=== PATIENT | male | born 1950 | race Caucasian/White ===

== ENCOUNTER 2018-07-16 17:06 | Emergency (ER) | payer MEDICARE ==
[2018-07-16] MEDS ORDERED: Mag-Al 1200 mg/1200 mg/30 ML UDCUP ONE (19:56)
[2018-07-16] MEDS ORDERED: Lidocaine Viscous Sol 2% 15 ml UD Cup ONE (19:56)
== END 2018-07-16 20:15 | disposition home or self-care (01) ==
LOC: ERS 17:06
DX: R07.89 Other chest pain (principal); I48.91 Unspecified atrial fibrillation; E11.9 Type 2 diabetes mellitus without complications; N40.0 Benign prostatic hyperplasia without lower urinary tract symptoms; E78.5 Hyperlipidemia, unspecified; F32.9 Major depressive disorder, single episode, unspecified; Z86.73 Personal history of transient ischemic attack (TIA), and cerebral infarction without residual deficits; Z79.82 Long term (current) use of aspirin; Z79.891 Long term (current) use of opiate analgesic; Z79.84 Long term (current) use of oral hypoglycemic drugs
CPT/HCPCS: 84484

== ENCOUNTER 2018-12-06 23:08 | Emergency (ER) | payer MEDICARE ==
[2018-12-07 00:22] LABS: #Eosinphils 0.2 thou/uL (0.0-0.7); #Lymphocytes 2.6 thou/uL (1.20-3.40); #Monocytes 1.1 thou/uL (0.11-0.59); %Basophils 0.2 % (0.0-1.0); %Eosinophils 3.1 % (0.0-10.0); %Lymphocytes 33.1 % (21.0-51.0); %Monocytes 13.2 % (0.0-10.0); %Neutrophils 50.6 % (42.0-75.0); Hemoglobin 11.1 g/dL (14.0-18.0); Mean Corpuscular HGB CONC 34.6 g/dL (32.0-36.0); Mean Corpuscular Hemoglobin 31.2 pg (27.0-31.0); Mean Corpuscular Volume 90.2 fL (78.0-98.0); Mean Platelet Volume 6.9 fL (7.4-10.4); Platelet Count 205 thou/uL (130-400); RBC Distribution Width 16.1 % (11.5-14.5); Red Blood Cell (RBC) Count 3.56 mill/uL (4.70-6.10)
[2018-12-07 00:46] LABS: ALT (SGPT) 11 U/L (8-55); AST (SGOT) 10 U/L (5-34); Albumin 4.1 g/dL (3.4-4.8); Alkaline Phosphatase 81 U/L (40-150); Anion Gap 14 mmol/L (10-20); BUN (Urea Nitrogen) 20 mg/dL (8.4-25.7); Bilirubin, Total 0.5 mg/dL (0.2-1.2); Calc. Creatinine Clearance 0 mL/min (70-130); Calcium 9.3 mg/dL (7.8-10.44); Carbon Dioxide 26 mmol/L (23-31); Chloride 98 mmol/L (98-107); Estimated GFR-MDRD 30; Globulin 3.3 g/dL (2.4-3.5); Glucose 263 mg/dL (80-115); Lipase 31 U/L (8-78); Protein, Total 7.4 g/dL (5.8-8.1); Sodium 134 mmol/L (136-145)
[2018-12-07 04:51] LABS: Bacteria/HPF None Seen HPF (None Seen); Bilirubin Negative (Negative); Blood, Urine Trace (Negative); Clarity Clear (Clear); Glucose, Urine (Dipstick) Greater than 1000 mg/dL (Negative); Leukocyte Negative Leu/uL (Negative); Nitrite Negative (Negative); Protein, Urine (Dipstick) 10 mg/dL (Neg-Trace); RBC/HPF 0-3 HPF (0-3); Squamous Epithelial 0-3 HPF (0-3); Urobilinogen Normal mg/dL (Less than 2); WBC/HPF 0-3 HPF (0-3)
--- NOTE | 2018-12-07 06:51 | CT ---
CT ABDOMEN AND PELVIS WITHOUT CONTRAST: 12/07/2018 PROVIDED CLINICAL HISTORY: Kidney pain. COMPARISON: None. FINDINGS: The visualized lung bases are free of significant opacity. The solid abdominal organs are suboptimally evaluated in the absence of IV contrast material but demo nstrate an unremarkable unenhanced CT appearance. There is no evidence for urinary tract calculi or hydronephrosis. Vascular calcification is noted, involving the abdominal aorta. There is ectasia of the infrarenal a bdominal aorta, measuring about 2.8 cm. Gallstones are noted with a contracted gallbladder. There is no bowel dilatation, inflammatory fat stranding, free fluid, or free air apparent. There is no evidence for appendicitis. The osseous structures demonstrate no concerning lytic or blastic lesions. IMPRESSION: No evidence for urinary tract calculi or hydronephrosis. POS: CHERYLE
--- NOTE | 2018-12-07 06:52 | ULT ---
ABDOMINAL AORTIC ULTRASOUND: 12/07/2018 PROVIDED CLINICAL HISTORY: Abdominal pain. FINDINGS: The abdominal aorta is nonaneurysmal, measuring about 2.8 cm in maximum transverse dimension. IMPRESSION: No sonographic evidence for abdominal aortic aneurysm. POS: CHERYLE
== END 2018-12-07 05:33 | disposition home or self-care (01) ==
LOC: ERS 23:08
DX: N17.9 Acute kidney failure, unspecified (principal); R33.9 Retention of urine, unspecified; R10.9 Unspecified abdominal pain; I48.91 Unspecified atrial fibrillation; F32.9 Major depressive disorder, single episode, unspecified; E11.9 Type 2 diabetes mellitus without complications; E78.5 Hyperlipidemia, unspecified; I10 Essential (primary) hypertension; Z86.73 Personal history of transient ischemic attack (TIA), and cerebral infarction without residual deficits; Z79.82 Long term (current) use of aspirin; Z79.891 Long term (current) use of opiate analgesic; Z79.899 Other long term (current) drug therapy
CPT/HCPCS: 36415; 51702; 74176; 76775; 80053; 81003; 81015; 83690; 85025; 96360; 96361

== ENCOUNTER 2019-01-14 14:45 | Inpatient (IN) | payer MEDICARE ==
[2019-01-14 15:36] LABS: #Eosinphils 0.1 thou/uL (0.0-0.7); #Lymphocytes 1.8 thou/uL (1.20-3.40); #Monocytes 0.8 thou/uL (0.11-0.59); #Neutrophils 6.6 thou/uL (1.40-6.50); %Basophils 0.2 % (0.0-1.0); %Lymphocytes 19.3 % (21.0-51.0); %Monocytes 8.6 % (0.0-10.0); %Neutrophils 70.8 % (42.0-75.0); Hemoglobin 12.2 g/dL (14.0-18.0); Mean Corpuscular HGB CONC 35.6 g/dL (32.0-36.0); Mean Corpuscular Hemoglobin 32.1 pg (27.0-31.0); Mean Corpuscular Volume 90.2 fL (78.0-98.0); Mean Platelet Volume 8.6 fL (7.4-10.4); Platelet Count 270 thou/uL (130-400); RBC Distribution Width 14.8 % (11.5-14.5); Red Blood Cell (RBC) Count 3.81 mill/uL (4.70-6.10); White Blood Cell (WBC) Count 9.3 thou/uL (4.8-10.8)
[2019-01-14] MEDS ORDERED: Morphine 4 MG/ML VIAL SLOW IVP SCH (15:45)
[2019-01-14] MEDS ORDERED: Ondansetron PF 4 MG/2 ML Vial IVP SCH (15:45)
[2019-01-14] MEDS ORDERED: Sodium Chloride 0.9% 1,000 ML IV SCH ×3 (15:45→20:49)
[2019-01-14 15:56] LABS: ALT (SGPT) 12 U/L (8-55); AST (SGOT) 12 U/L (5-34); Alkaline Phosphatase 103 U/L (40-150); Anion Gap 20 mmol/L (10-20); BUN (Urea Nitrogen) 26 mg/dL (8.4-25.7); Bilirubin, Total 0.9 mg/dL (0.2-1.2); Calc. Creatinine Clearance 0 mL/min (70-130); Calcium 9.3 mg/dL (7.8-10.44); Carbon Dioxide 21 mmol/L (23-31); Chloride 87 mmol/L (98-107); Estimated GFR-MDRD 28; Globulin 3.8 g/dL (2.4-3.5); Potassium 3.8 mmol/L (3.5-5.1); Protein, Total 7.8 g/dL (5.8-8.1); Sodium 124 mmol/L (136-145)
--- NOTE | 2019-01-14 15:56 | RAD ---
Exam: Chest one view HISTORY:Chest pain Comparison: 01/21/2016 FINDINGS: Cardiac silhouette:Cardiomegaly Left-sided transvenous pacemaker with single lead terminating over the right ventricle Aorta: Unremarkable Pulmonary vessels: Normal Costophrenic angles: Clear LUNGS: Inflation. Chronic changes. No masses or consolidation. Pneumothorax: None Osseous abnormalities: None IMPRESSION: No acute cardiopulmonary process.
[2019-01-14 16:04] LABS: Glucose 588 mg/dL (80-115)
[2019-01-14 16:11] LABS: INR-International Normal Ratio 1.1; PTT 28.8 SEC (22.9-36.1); Prothrombin Time 14.5 SEC (12.0-14.7)
--- NOTE | 2019-01-14 16:13 | CT ---
Exam: Head CT without contrast HISTORY: Altered mental status COMPARISON: none FINDINGS: Hemorrhage: No intraparenchymal hemorrhage or extra-axial hematoma. Brain parenchyma: There is malacic and gliotic change involving the left frontal and temporal lobes. There is a curvilinear hyperdensity in the left frontal subcortical white matter (axial image 21) likely representing an area of calcification. There is ex vacuo dilatation of the frontal horn the le ft lateral ventricle.White matter hypodensities due to chronic small vessel ischemic changes are identified. There is a hypodensity in the midline the anthony noted on axial image #8. Findings may be a rtifactual. Ventricular system: Ex vacuo dilatation of the frontal horn of the left lateral ventricle Calvarium: Intact. Sinuses and mastoid air cells: Adequate aeration. IMPRESSION: Hyperdensity in the left cerebrum and hypodensity in the anthony. Both lesions are felt to be due to rem ote insult or possibly artifactual. As a conservative measure, follow-up CT should be performed in 6-12 hours. Results of study discussed with Dr. Welch 01/14/2019 at 5:19 PM Code CR Transcribed Date/Time: 01/14/2019 4:31 PM
[2019-01-14] MEDS ORDERED: Morphine 4 MG/ML VIAL ONE (16:20)
[2019-01-14] MEDS ORDERED: Ondansetron PF 4 MG/2 ML Vial ONE (16:21)
[2019-01-14 16:36] LABS: Base Excess-Venous 1.7 mmol/L (-2.0 to 3.0); Calcium, Ionized 1.13 mmol/L (See Comments:); Chloride 90 mmol/L (98-107); Hemoglobin - Calc 12.2 g/dL (14.0-18.0); Potassium 3.7 mmol/L (3.5-5.1); Sodium 129 mmol/L (138-145); vO2 Saturation-calc 91.3 % (60.0-85.0)
[2019-01-14 16:53] LABS: Bacteria/HPF 4+ HPF (None Seen); Bilirubin Negative (Negative); Blood, Urine Trace (Negative); Clarity Turbid (Clear); Glucose, Urine (Dipstick) Greater than 1000 mg/dL (Negative); Leukocyte 500 Leu/uL (Negative); Nitrite Negative (Negative); Protein, Urine (Dipstick) 20 mg/dL (Neg-Trace); Squamous Epithelial 0-3 HPF (0-3); Urobilinogen Normal mg/dL (Less than 2); WBC/HPF Greater than 50 HPF (0-3)
[2019-01-14] MEDS ORDERED: Insulin Regular 300 UNITS/3 ML VIAL ONE (17:13)
--- NOTE | 2019-01-14 17:13 | CT ---
CT Abdomen Pelvis WO Con 01/14/2019 4:15 PM HISTORY: Right-sided chest and abdominal pain. Urinary frequency. COMPARISON: 12/07/2018. Technique: Multiple contiguous axial CT images are obtained through the abdomen and pelvis without IV contrast. Coronal reformats are provided. FINDINGS: This examination is limited for the evaluation of solid organs and vascular structures due to the lac k of intravenous contrast. Lower Chest: The heart is enlarged. There is partial visualization of a right ventricular AICD lead. There is a small pleural-based nodular density left lung base adjacent to the hemidiaphragm measuring 8 mm. Atelectasis is present at each lung base. Abdomen: Liver: Grossly normal nonenhanced CT appearance. Gallbladder: Evidence of cholelithiasis is again seen. Pancreas: Grossly normal nonenhanced CT appearance. Spleen: Grossly nonenhanced CT appearance. Adrenals: Grossly normal nonenhanced CT appearance. Kidneys: No renal or ureteral calculi are seen bilaterally. There is a stable subcentimeter hyperdens e exophytic lesion posterior aspect midportion left kidney. There is no hydronephrosis. Ureters: No ureteral calculus is seen.. Pelvis: Urinary bladder: within normal limits. Reproductive Organs: No pelvic masses. Lymph Nodes: No enlarged lymph nodes. Bowel: Normal caliber. Appendix: Not visualized, but no secondary signs are seen to suggest appendicitis. Peritoneum: No free fluid, free air, or fluid collection. Retroperitoneum: within normal limits. Vessels: Vascular calcifications are again seen in the abdominal aorta involving the iliac arteries. There is a focal infrarenal abdominal aortic aneurysm measuring 3.2 cm. Common iliac arteries are ectatic bilaterally.. Abdominal Wall: within normal limits. Bones: Multilevel degenerative changes are again seen in the spine. There is a transitional vertebra at the lumbosacral junction. IMPRESSION: 1. Infrarenal abdominal aortic aneurysm measuring 3.2 cm. Prominent vascular calcifications are seen. 2. No renal or ureteral calculi are seen bilaterally. 3. Cholelithiasis. 4. Mild cardiomegaly. 5. Subcentimeter difficult to characterize pleural-based nodular density left lung base. 6. No acute findings are seen on this nonenhanced CT scan exam.
--- NOTE | 2019-01-14 18:03 | PDOC.FM ---
- Objective Result Diagrams: 01/14/19 15:22 01/14/19 15:22
[2019-01-14] MEDS ORDERED: Ondansetron ODT 4 MG TAB SL PRN (18:52)
[2019-01-14] MEDS ORDERED: Acetaminophen 325 MG TAB PO PRN (18:52)
[2019-01-14] MEDS ORDERED: Ondansetron PF 4 MG/2 ML Vial IVP PRN (18:52)
[2019-01-14 21:12] VITALS: BMI 26.2
[2019-01-14] MEDS ORDERED: Dextrose 50% Abboject 50 ML SYRINGE SLOW IVP PRN (21:25)
[2019-01-14] MEDS ORDERED: Dextrose 5% in Water 1,000 ML IV PRN (21:25)
[2019-01-14] MEDS: HumaLOG 300 UNITS/3 ML VIAL SC PRN (21:50)
--- NOTE | 2019-01-14 22:48 | HP ---
PRIMARY CARE PHYSICIAN: [facility]. CODE STATUS: Full code. TIME OF EVALUATION: 8:20 p.m. CHIEF COMPLAINT: Recent falls. 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 Came to the hospital after having recent falls. This is a new problem. It has been going on for the past few days with no clear triggers, no alleviating factors, the patient has been following with Dr. Griselda Soares and she has been monitoring his blood sugars and his diabetic medications adjustments due to changes in kidney function. The patients' symptoms were severe. The patient was unable to function and do his activities of daily living with weakness in bilateral lower extremities. Also had some increase in urinary frequency. He was found to have a positive UA, been admitted for UTI, maybe the reason of the symptoms. We will continue the patient on antibiotics and follow cultures. Adjust treatment. REVIEW OF SYSTEMS: All other systems were reviewed and negative except for the findings mentioned above. As noted, the patient has sequela of stroke with aphasia and right-sided weakness. PAST MEDICAL HISTORY: As mentioned in the HPI. SURGICAL HISTORY: Pacemaker, appendectomy, tonsillectomy. PSYCHIATRIC HISTORY: Includes depression. FAMILY HISTORY: Reviewed and the patient has a family history of hypertension and heart problems. SOCIAL HISTORY: The patient lives alone, cannot take care of himself except for the past week when the symptoms started. KNOWN ALLERGIES: Penicillin. REPORTED MEDICATIONS: Are being verified now. PHYSICAL EXAMINATION: VITAL SIGNS: Heart rate 76, respiratory rate was 15, oxygen saturation was 99% on room air, blood pressure was 111/63. GENERAL: The patient is alert and oriented, not in acute distress. HEENT: Eyes, normal conjunctivae. Moist oral mucosa. Anicteric. No JVD. RESPIRATORY: Bilateral air entry. No rales. No wheezes. Symmetric expansion. CARDIOVASCULAR: Normal rate. Regular rhythm. No murmurs. No gallop. No edema. ABDOMEN: Soft. Normal bowel sounds. MUSCULOSKELETAL: Baseline range of motion and strength. SKIN: Warm and intact. No pallor. No rash. No redness. Capillary refill seems to be intact. NEURO: No evidence of any new focal weakness. The patient does have residual weakness on the right side with apraxia and aphasia. PSYCH: The patient is oriented. Good mood. DIAGNOSTIC DATA: EKG was reviewed. The patient has atrial fibrillation with controlled rate. Some T-wave changes, may be compatible with inferior and anterolateral ischemia. The patient has no chest pain. Radiology; CT abdomen and pelvis with and without contrast was done. The patient has an infrarenal abdominal aortic aneurysm measuring 3.2 cm. Prominent ventricular calcifications. No renal or ureteral calculi that was seen bilaterally. Cholelithiasis, mild cardiomegaly, subcentimeter [id number] pleural-based nodular density of the left lung base. No acute findings are seen on these nonenhanced CT scan exam. LABORATORY DATA: Labs were reviewed. The patient has a white count of 9.3, hemoglobin 12.2, MCV 90.2, platelet count 270. PT 14.5, INR 1.1, PTT 28.8. Blood gas; pH 7.47 that was VBG. Chemistry; sodium 134, potassium 3.8, chloride 87, carbon dioxide 21, anion gap 20, BUN 26, creatinine 2.33. In previous admissions, the creatinine was 2.21, so this is chronic. GFR 28. Glucose 588, calcium 9.3, total bilirubin 0.9, AST 12, ALT 12, alkaline phosphatase 103. Troponin 0.021. Serum total protein 7.8, albumin 4.0, globulin 3.8, albumin to globulin ratio is 1.1, lipase 36. The urine was reviewed. The patient has bacteriuria with white count greater than 50, and some rbc's and urine leukocyte esterase of 500. ASSESSMENT AND PLAN: The patient will be placed in the hospital with following medical problems: 1. Urinary tract infection. The patient has been started on antibiotics. We will continue for now. We will adjust Levaquin as per kidney function. 2. Uncontrolled diabetes. The patient's blood sugar has been initially in the 500s, was corrected to 300. We will place the patient on sliding scale. The patient has not resumed medications for diabetes as there are some changes due to worsening kidney function. The patient might need to go on insulin which will be p.o.'s for discharge and this needs to be followed up with primary care doctor physician for this reason. 3. Chronic kidney disease. The patient has creatinine of 2.33 that is stable from previous admission, the GFR is 28, so this is stage IV. We will monitor kidney function. We will adjust treatment as needed. We will dose home medications and antibiotics based on kidney function. We will continue to monitor, might need Nephrology evaluation if no improvement. 4. Chronic normocytic anemia. This is likely secondary to chronic kidney disease. This is stable. This can be followed as outpatient. Job ID: [id number]
--- NOTE | 2019-01-14 23:22 | CON ---
DATE OF CONSULTATION: HISTORY OF PRESENT ILLNESS: Mr. Andino is a 68-year-old male, who was brought to the emergency department following a fall a couple of days ago, hyperglycemic. The patient's daughter states that the patient can only answer yes or no questions following a stroke in 2012. He is diabetic, but no longer takes insulin. He is on Eliquis; however, he ran out more than a week ago and has not been taking it. The patient's glucose on arrival was 538. Neurosurgery was consulted following CT head that showed a hyperdensity on the left. When I see Mr. Andino, he is resting comfortably in his hospital bed. He does not appear to be in any visible distress. He follows simple commands and answers simple questions. He is oriented to person, and place. He knows that he is in the hospital, but has some confusion about why. He does know that he had a stroke several years back and has some limitations, but he is moving all 4 extremities well. He has good strength bilaterally. Denies any numbness or tingling. Cranial nerves are tested and intact. REVIEW OF SYSTEMS: A 10-point review of systems has been completed and is negative other than stated above in the HPI. PAST MEDICAL HISTORY: Arrhythmia, atrial fibrillation treated with cardioversion, defibrillation, diabetes type 2. Genitourinary, benign prostate hypertrophy, hyperlipidemia, hypertension, cardiovascular, stroke. PAST SURGICAL HISTORY: Pacemaker, appendectomy, tonsillectomy. SOCIAL HISTORY: The patient denies alcohol or drug use. No smoking history. ALLERGIES: PENICILLIN. CURRENT MEDICATIONS: 1. Metformin. 2. Hydralazine. 3. Glipizide. 4. Eliquis. 5. Flomax. 6. Sertraline. 7. Nifedipine. 8. Lisinopril. 9. Furosemide. 10. Carvedilol. 11. Atorvastatin. PHYSICAL EXAMINATION: VITAL SIGNS: Temperature 97.3, heart rate 81, respirations 18, O2 sats 94% on room air, blood pressure 113/71. CONSTITUTIONAL: The patient is alert, oriented to person and place. He is afebrile, normotensive, nontoxic appearing. HEENT. Head is normocephalic and atraumatic. Pupils are equal, round, and reactive to light. Extraocular movements are intact. Hearing is intact. Moist mucous membranes. RESPIRATIONS: Normal work of breathing on room air. Symmetric chest rise. EXTREMITIES: The patient has normal range of motion and strength, 5/5 bilateral strength in deltoids, biceps, triceps, celebrity manager strength, hip flexion, hip extension, dorsiflexion, plantar flexion. Equal sensation and abrasion to right knee and right elbow. NEUROLOGIC: GCS of 15. The patient is awake, alert, oriented x2 to person and place. He is answering simple questions. Speech is spontaneous and fluent. There is some confusion about why he is in the hospital and he follows simple commands, gets confused easily. Cranial nerves 2 through 12 are tested and intact. There are no lateralizing or sensory deficits noted. IMAGING STUDIES: CT head shows hyperdensity in the left cerebrum and hypodensity on the above lesions are felt to be due to remote insult or possibly our effectual conservative measures. We would recommend CT followup in 6 to 12 hours. ASSESSMENT AND PLAN: Mr. Andino is a 68-year-old male with past medical history of stroke, diabetes, blood thinner use. He has had recent falls. He is hyperglycemic and has urinary tract infection. There is hyperdensity noted on CT brain, which recommended followup. Neurosurgery recommends a CT in the morning as well as neuro checks. No blood thinners should be used at this time as well there is verification of imaging on followup. If there are any further questions, please contact Neurosurgery team. Job ID: [id number]
[2019-01-15 05:34] LABS: #Eosinphils 0.3 thou/uL (0.0-0.7); #Monocytes 0.7 thou/uL (0.11-0.59); #Neutrophils 5.9 thou/uL (1.40-6.50); %Basophils 0.3 % (0.0-1.0); %Eosinophils 2.8 % (0.0-10.0); %Monocytes 8.3 % (0.0-10.0); %Neutrophils 66.7 % (42.0-75.0); Hemoglobin 11.5 g/dL (14.0-18.0); Mean Corpuscular HGB CONC 34.8 g/dL (32.0-36.0); Mean Corpuscular Hemoglobin 31.7 pg (27.0-31.0); Mean Corpuscular Volume 91.1 fL (78.0-98.0); Platelet Count 215 thou/uL (130-400); RBC Distribution Width 14.6 % (11.5-14.5); Red Blood Cell (RBC) Count 3.65 mill/uL (4.70-6.10); White Blood Cell (WBC) Count 8.9 thou/uL (4.8-10.8)
[2019-01-15] MEDS: HumaLOG 300 UNITS/3 ML VIAL SC PRN ×3 (05:39→21:09)
[2019-01-15 05:47] LABS: Anion Gap 14 mmol/L (10-20); BUN (Urea Nitrogen) 24 mg/dL (8.4-25.7); Calc. Creatinine Clearance 53 mL/min (70-130); Calcium 8.8 mg/dL (7.8-10.44); Carbon Dioxide 26 mmol/L (23-31); Chloride 94 mmol/L (98-107); Estimated GFR-MDRD 36; Glucose 207 mg/dL (80-115); Potassium 3.6 mmol/L (3.5-5.1); Sodium 130 mmol/L (136-145)
--- NOTE | 2019-01-15 07:42 | CT ---
CT OF HEAD NONCONTRAST: COMPARISON: Previous day. CLINICAL INDICATION: Abnormal CT, followup. FINDINGS: There is stable ex vacuo dilatation of the left frontal horn. There is a moderate encephalomalacia o f the left cerebral hemisphere with associated wallerian degeneration of the left cerebral peduncle, stable. Chronic microvascular ischemic disease in the cerebral white matter is present. There is a stable curvilinear density indicative of dystrophic calcification involving the anterior left centrum semiovale. The exam is otherwise stable. IMPRESSION: 1. Microvascular ischemic disease and moderate region of encephalomalacia of the left cerebral hemis phere, with resultant left side wallerian degeneration. 2. Stable curvilinear hyperdensity of the anterior left centrum semiovale indicative of dystrophic c alcification. POS: REGINE
[2019-01-15] MEDS ORDERED: Prevnar 13-Val Conj/PF 0.5 ML SYRINGE IM ONE (09:00)
[2019-01-15] MEDS ORDERED: Enoxaparin Sodium 40 MG/0.4 ML SYRINGE SC SCH (09:00)
--- NOTE | 2019-01-15 10:12 | PRG ---
DATE OF SERVICE: 01/15/2019 SUBJECTIVE: The patient is seen and examined at the bedside. He is doing quite well. He does not have much complaints to offer except for some chest discomfort on the right upper chest. He denies any dysuria. No fever. No chills. He is waiting for the breakfast to arrive. He is hungry. OBJECTIVE: VITAL SIGNS: Blood pressure is 118/63, pulse is 68, respiratory rate is 18, O2 saturation is 95% on room air, and temperature is 98.5. HEENT: His head is normocephalic. Pupils are responding to light properly. He follows me. Extraocular movements within normal limits. Sclerae are nonicteric. Conjunctivae pinkish. Oral mucosa is moist. NECK: Supple LUNGS: Clear. HEART: S1 and S2 normal. No S3. No S4. ABDOMEN: Soft, nontender, and nondistended. EXTREMITIES: No clubbing, cyanosis, or edema. NEUROLOGIC: His speech is slurred and he has some difficulty of recalling things, but he follows my simple commands. He moves his all 4 extremities. There is no any motor or sensory deficits at the time of my evaluation. LABORATORY DATA: White count of 8.9, hemoglobin 11.5, hematocrit 33.2, platelet count is 215. Sodium of 130, potassium 3.6, chloride 94, BUN of 24, creatinine 1.88. Glycemia is ranging from 192 to 310, and it was greater than 550 at the time of admission. Microbiology none so far. Brain CT; does the second CT done this morning showed, 1. Microvascular ischemic disease and moderate region of encephalomalacia of the left cerebral hemisphere with resultant left-sided Wallerian degeneration. 2. Stable curvilinear hyperdensity of the anterior left centrum semiovale indicative of dystrophic calcification. IMPRESSION: 1. Possible urinary tract infection. The patient is on levofloxacin. He denies any dysuria, fever, or chills. We will continue that antibiotic. 2. Uncontrolled diabetes. This is getting gradually under control. His glycemia is down to 190s this morning. 3. Chronic kidney disease, improved. His creatinine is down to below 2 this morning and that is probably the best for him. 4. Chronic normocytic anemia, most likely secondary to his chronic kidney disease, stable. 5. Previous cerebrovascular accident with some old findings on the CT of the brain. 6. History of atrial fibrillation, which was treated with cardioversion. 7. BPH. 8. Hyperlipidemia. 9. Hypertension. PLAN: We will await Neurosurgical input. The CT scan was just done as a followup on the previous one. We will continue levofloxacin for now and we will try to identify his home medications. His glycemia has significantly improved. He is on sliding scale Humalog. We will continue DVT prophylaxis and we will try to identify his home medications. The patient is not able to tell us exactly what he is taking and the family refers us to his doctor's office, which is closed obviously because today is Wednesday. Job ID: [id number]
[2019-01-15] MEDS ORDERED: Baclofen 10 MG TAB PO PRN (16:11)
[2019-01-15] MEDS: Potassium Chloride 10 MEQ TAB PO SCH (16:49)
[2019-01-15] MEDS: Carvedilol 6.25 MG TAB PO SCH (21:08)
[2019-01-16] MEDS: HumaLOG 300 UNITS/3 ML VIAL SC PRN ×3 (05:36→21:50)
[2019-01-16] MEDS: Atorvastatin Calcium 40 MG TAB PO SCH (08:20)
[2019-01-16] MEDS: Metolazone 5 MG TAB PO SCH (08:21)
[2019-01-16] MEDS: Lisinopril 20 MG TAB PO SCH (08:21)
[2019-01-16] MEDS: Aspirin 81 mg Enteric Coated Tablet PO SCH (08:21)
[2019-01-16] MEDS: Carvedilol 6.25 MG TAB PO SCH ×2 (08:21→20:21)
[2019-01-16] MEDS: NIFEdipine XL 30 MG TAB PO SCH (08:21)
[2019-01-16] MEDS: Apixaban 5 MG TAB PO SCH (08:21)
[2019-01-16] MEDS: Spironolactone 25 MG TAB PO SCH (08:22)
[2019-01-16] MEDS: Potassium Chloride 10 MEQ TAB PO SCH ×2 (08:22→18:14)
[2019-01-16] MEDS: Furosemide 20 MG TAB PO SCH (08:22)
[2019-01-16] MEDS: hydrALAZINE 25 MG TAB PO SCH (08:22)
[2019-01-16] MEDS: Bumetanide 1 MG TAB PO SCH (08:32)
[2019-01-16 10:57] LABS: #Eosinphils 0.2 thou/uL (0.0-0.7); #Lymphocytes 1.6 thou/uL (1.20-3.40); #Monocytes 0.5 thou/uL (0.11-0.59); %Basophils 0.8 % (0.0-1.0); %Eosinophils 3.5 % (0.0-10.0); %Lymphocytes 24.7 % (21.0-51.0); Mean Corpuscular HGB CONC 35.1 g/dL (32.0-36.0); Mean Corpuscular Hemoglobin 32.1 pg (27.0-31.0); Mean Corpuscular Volume 91.4 fL (78.0-98.0); Mean Platelet Volume 8.1 fL (7.4-10.4); Platelet Count 211 thou/uL (130-400); RBC Distribution Width 14.5 % (11.5-14.5); Red Blood Cell (RBC) Count 3.44 mill/uL (4.70-6.10); White Blood Cell (WBC) Count 6.4 thou/uL (4.8-10.8)
[2019-01-16 11:23] LABS: Anion Gap 12 mmol/L (10-20); BUN (Urea Nitrogen) 19 mg/dL (8.4-25.7); Calc. Creatinine Clearance 59 mL/min (70-130); Carbon Dioxide 27 mmol/L (23-31); Chloride 93 mmol/L (98-107); Estimated GFR-MDRD 40; Glucose 332 mg/dL (80-115); Potassium 3.4 mmol/L (3.5-5.1); Sodium 129 mmol/L (136-145)
--- NOTE | 2019-01-16 18:06 | PDOC.HOSPP ---
- Subjective Encounter Date: 01/16/19 Encounter Time: 11:00 Subjective: Pt seen for followup re: UTI. Not ambulating. - Objective Vital Signs & Weight: Vital Signs (12 hours) Temp Pulse Resp BP BP Pulse Ox 01/16/19 08:22 76 01/16/19 08:21 76 118/63 01/16/19 08:00 96 01/16/19 07:47 98.1 F 64 16 122/72 96 Weight Weight 221 lb I&O: 01/15/19 01/16/19 01/17/19 06:59 06:59 06:59 Intake Total 968 1330 480 Output Total 350 350 200 Balance 618 980 280 Result Diagrams: 01/16/19 10:13 01/16/19 10:13 Additional Labs: Accuchecks 01/16/19 01/16/19 01/15/19 11:12 04:24 19:34 POC Glucose 426 H 307 H 317 H Labs and MARs reviewed by me. ROS - Review of Systems Constitutional: reports: weakness Respiratory: denies: cough, shortness of breath, SOB with excertion, pleuritic pain, wheezing, other Cardiovascular: denies: chest pain, palpitations, orthopnea, paroxysmal noc. dyspnea, edema, light headedness - Medication Medications: Active Medications Generic Name Dose Route Start Last Admin Trade Name Freq PRN Reason Stop Dose Admin Apixaban 5 mg 01/16/19 09:00 01/16/19 08:21 Eliquis PO 5 mg DAILY MEGAN Administration Aspirin 81 mg 01/16/19 09:00 01/16/19 08:21 Ecotrin PO 81 mg DAILY MEGAN Administration Atorvastatin Calcium 80 mg 01/16/19 09:00 01/16/19 08:20 Lipitor PO 80 mg DAILY MEGAN Administration Bumetanide 2 mg 01/16/19 09:00 01/16/19 08:32 Bumex PO 2 mg DAILY MEGAN Administration Carvedilol 6.25 mg 01/15/19 21:00 01/16/19 08:21 Coreg PO 6.25 mg BID MEGAN Administration Furosemide 20 mg 01/16/19 09:00 01/16/19 08:22 Lasix PO 20 mg QAM MEGAN Administration Glipizide 10 mg 01/16/19 08:00 01/16/19 08:32 Glucotrol Xl PO 10 mg QAM-WM MEGAN Administration Hydralazine HCl 25 mg 01/16/19 09:00 01/16/19 08:22 Apresoline PO 25 mg DAILY MEGAN Administration Insulin Human Lispro 0 units 01/14/19 21:25 01/15/19 21:09 Humalog SC 4 unit .BEDTIME SLIDING SC PRN Administration Bedtime Correctional Scale Lisinopril 20 mg 01/16/19 09:00 01/16/19 08:21 Zestril PO 20 mg DAILY MEGAN Administration Metolazone 5 mg 01/16/19 09:00 01/16/19 08:21 Zaroxolyn PO 5 mg DAILY MEGAN Administration Nifedipine 30 mg 01/16/19 09:00 01/16/19 08:21 Procardia Xl PO 30 mg DAILY MEGAN Administration Pantoprazole Sodium 40 mg 01/16/19 09:00 01/16/19 08:22 Protonix PO 40 mg DAILY MEGAN Administration Potassium Chloride 10 meq 01/15/19 17:00 01/16/19 08:22 Klor-Con 10 PO 10 meq BID-WM MEGAN Administration Sertraline HCl 100 mg 01/16/19 09:00 01/16/19 08:22 Zoloft PO 100 mg DAILY MEGAN Administration Spironolactone 25 mg 01/16/19 08:00 01/16/19 08:22 Aldactone PO 25 mg QAM-WM MEGAN Administration - Exam NAD Eye: anicteric sclera ENT: moist mucosa Neck: supple Heart: irregular Respiratory: CTAB Gastrointestinal: soft Skin: no rashes Neurological: no weakness Psychiatric: normal affect, normal behavior Hosp A/P (1) UTI (urinary tract infection) Status: Acute (2) DM2 (diabetes mellitus, type 2) Status: Chronic (3) BPH (benign prostatic hyperplasia) Code(s): N40.0 - BENIGN PROSTATIC HYPERPLASIA WITHOUT LOWER URINRY TRACT SYMP Status: Chronic (4) Dyslipidemia Code(s): E78.5 - HYPERLIPIDEMIA, UNSPECIFIED Status: Chronic (5) Acute worsening of stage 3 chronic kidney disease Code(s): N18.3 - CHRONIC KIDNEY DISEASE, STAGE 3 (MODERATE) Status: Resolved - Plan continue antibiotics, out of bed/ambulate Pt says dysuria improved, continue levofloxacin. Urine cultures were not sent. Transfer to telemetry, interrogate AICD. Check orthostatic vitals. Ambulate patient. Blood sugars high, switch to moderate insulin sliding scale. Continue atorvastatin.
[2019-01-17 05:43] LABS: #Basophils 0.1 thou/uL (0.0-0.2); #Eosinphils 0.2 thou/uL (0.0-0.7); #Lymphocytes 1.8 thou/uL (1.20-3.40); #Monocytes 0.6 thou/uL (0.11-0.59); #Neutrophils 4.2 thou/uL (1.40-6.50); %Basophils 0.9 % (0.0-1.0); %Eosinophils 2.3 % (0.0-10.0); %Lymphocytes 26.7 % (21.0-51.0); %Monocytes 8.6 % (0.0-10.0); %Neutrophils 61.6 % (42.0-75.0); Hemoglobin 11.1 g/dL (14.0-18.0); Mean Corpuscular HGB CONC 34.7 g/dL (32.0-36.0); Mean Corpuscular Hemoglobin 31.5 pg (27.0-31.0); Mean Corpuscular Volume 90.7 fL (78.0-98.0); Mean Platelet Volume 7.9 fL (7.4-10.4); Platelet Count 210 thou/uL (130-400); RBC Distribution Width 14.5 % (11.5-14.5); Red Blood Cell (RBC) Count 3.53 mill/uL (4.70-6.10); White Blood Cell (WBC) Count 6.9 thou/uL (4.8-10.8)
[2019-01-17 06:04] LABS: Anion Gap 14 mmol/L (10-20); BUN (Urea Nitrogen) 21 mg/dL (8.4-25.7); Calc. Creatinine Clearance 58 mL/min (70-130); Carbon Dioxide 24 mmol/L (23-31); Chloride 93 mmol/L (98-107); Estimated GFR-MDRD 38; Glucose 285 mg/dL (80-115); Potassium 3.9 mmol/L (3.5-5.1); Sodium 127 mmol/L (136-145)
[2019-01-17] MEDS: HumaLOG 300 UNITS/3 ML VIAL SC PRN ×4 (06:09→21:11)
[2019-01-17] MEDS: Potassium Chloride 10 MEQ TAB PO SCH ×2 (08:08→17:24)
[2019-01-17] MEDS: Metolazone 5 MG TAB PO SCH (08:08)
[2019-01-17] MEDS: Lisinopril 20 MG TAB PO SCH (09:11)
[2019-01-17] MEDS: Furosemide 20 MG TAB PO SCH (09:12)
[2019-01-17] MEDS: Aspirin 81 mg Enteric Coated Tablet PO SCH (09:12)
[2019-01-17] MEDS: Carvedilol 6.25 MG TAB PO SCH ×2 (09:12→21:12)
[2019-01-17] MEDS: NIFEdipine XL 30 MG TAB PO SCH (09:13)
[2019-01-17] MEDS: Bumetanide 1 MG TAB PO SCH (09:13)
[2019-01-17] MEDS: Apixaban 5 MG TAB PO SCH (09:13)
[2019-01-17] MEDS: hydrALAZINE 25 MG TAB PO SCH (09:13)
[2019-01-17] MEDS: Spironolactone 25 MG TAB PO SCH (09:13)
[2019-01-17] MEDS: Atorvastatin Calcium 40 MG TAB PO SCH (09:13)
--- NOTE | 2019-01-17 14:59 | PDOC.HOSPP ---
- Subjective Encounter Date: 01/17/19 Encounter Time: 07:20 Subjective: Pt seen for followup re: NSVT. Feels weak. Ambulated with PT. No fevers or chills. - Objective Vital Signs & Weight: Vital Signs (12 hours) Temp Pulse Resp BP BP BP BP 01/17/19 12:20 74 18 108/60 01/17/19 09:25 125/67 118/62 01/17/19 09:13 66 01/17/19 09:12 132/68 01/17/19 09:11 132/68 01/17/19 08:00 98.4 F 66 132/68 01/17/19 04:00 98.6 F 71 18 120/56 L Pulse Ox 01/17/19 12:20 98 01/17/19 09:25 01/17/19 09:13 01/17/19 09:12 01/17/19 09:11 01/17/19 08:00 01/17/19 04:00 98 Weight Weight 226 lb 2.855 oz I&O: 01/16/19 01/17/19 01/18/19 06:59 06:59 06:59 Intake Total 1330 920 600 Output Total 350 1400 200 Balance 980 -480 400 Result Diagrams: 01/17/19 05:27 01/17/19 05:27 Additional Labs: Accuchecks 01/17/19 01/17/19 01/16/19 10:07 05:34 21:06 POC Glucose 371 H 308 H 292 H 01/16/19 01/16/19 17:36 11:12 POC Glucose 397 H 426 H Labs and MARs reviewed by me. EKG Reviewed by me: Yes (Tele: NSR) Hospitalist ROS - Review of Systems Cardiovascular: denies: chest pain, palpitations, orthopnea, paroxysmal noc. dyspnea, edema, light headedness Gastrointestinal: denies: nausea, vomitting, abdominal pain, diarrhea, constipation, melena, hematochezia - Medication Medications: Active Medications Generic Name Dose Route Start Last Admin Trade Name Freq PRN Reason Stop Dose Admin Apixaban 5 mg 01/16/19 09:00 01/17/19 09:13 Eliquis PO 5 mg DAILY MEGAN Administration Aspirin 81 mg 01/16/19 09:00 01/17/19 09:12 Ecotrin PO 81 mg DAILY MEGAN Administration Atorvastatin Calcium 80 mg 01/16/19 09:00 01/17/19 09:13 Lipitor PO 80 mg DAILY MEGAN Administration Bumetanide 2 mg 01/16/19 09:00 01/17/19 09:13 Bumex PO 2 mg DAILY MEGAN Administration Carvedilol 6.25 mg 01/15/19 21:00 01/17/19 09:12 Coreg PO 6.25 mg BID MEGAN Administration Furosemide 20 mg 01/16/19 09:00 01/17/19 09:12 Lasix PO 20 mg QAM MEGAN Administration Glipizide 10 mg 01/16/19 08:00 01/17/19 08:08 Glucotrol Xl PO 10 mg QAM-WM MEGAN Administration Hydralazine HCl 25 mg 01/16/19 09:00 01/17/19 09:13 Apresoline PO 25 mg DAILY MEGAN Administration Levofloxacin 750 mg/ Device 150 mls @ 100 mls/hr 01/16/19 17:00 01/16/19 18: 14 IVPB 150 mls Q2DAYS@1700 MEGAN Administration Insulin Human Lispro 0 units 01/14/19 21:25 01/16/19 21:50 Humalog SC 3 unit .BEDTIME SLIDING SC PRN Administration Bedtime Correctional Scale Insulin Human Lispro 0 units 01/16/19 17:53 01/17/19 12:14 Humalog SC 10 unit .MODERATE SLIDING SC PRN Administration MODERATE SLIDING SCALE Protocol Lisinopril 20 mg 01/16/19 09:00 01/17/19 09:11 Zestril PO 20 mg DAILY MEGAN Administration Metolazone 5 mg 01/16/19 09:00 01/17/19 08:08 Zaroxolyn PO 5 mg DAILY MEGAN Administration Nifedipine 30 mg 01/16/19 09:00 01/17/19 09:13 Procardia Xl PO 30 mg DAILY MEGAN Administration Pantoprazole Sodium 40 mg 01/16/19 09:00 01/17/19 09:13 Protonix PO 40 mg DAILY MEGAN Administration Potassium Chloride 10 meq 01/15/19 17:00 01/17/19 08:08 Klor-Con 10 PO 10 meq BID-WM MEGAN Administration Sertraline HCl 100 mg 01/16/19 09:00 01/17/19 09:13 Zoloft PO 100 mg DAILY MEGAN Administration Spironolactone 25 mg 01/16/19 08:00 01/17/19 09:13 Aldactone PO 25 mg QAM-WM MEGAN Administration - Exam General Appearance: NAD Eye: anicteric sclera ENT: moist mucosa Neck: supple, no JVD Heart: RRR Respiratory: CTAB Gastrointestinal: soft, non-tender Neurological: no weakness Psychiatric: normal affect, normal behavior Hosp A/P (1) NSVT (nonsustained ventricular tachycardia) Code(s): I47.2 - VENTRICULAR TACHYCARDIA Status: Acute (2) UTI (urinary tract infection) Status: Acute (3) DM2 (diabetes mellitus, type 2) Status: Chronic (4) BPH (benign prostatic hyperplasia) Code(s): N40.0 - BENIGN PROSTATIC HYPERPLASIA WITHOUT LOWER URINRY TRACT SYMP Status: Chronic (5) Dyslipidemia Code(s): E78.5 - HYPERLIPIDEMIA, UNSPECIFIED Status: Chronic (6) Acute worsening of stage 3 chronic kidney disease Code(s): N18.3 - CHRONIC KIDNEY DISEASE, STAGE 3 (MODERATE) Status: Resolved - Plan continue antibiotics, PT/OT, out of bed/ambulate Runs of NSVT on AICD interrogation, consult cardiology. Continue Levaquin for UTI. Ambulate patient. Blood sugars high, switch to aggressive insulin sliding scale. Add lantus insulin 5 units HS. Continue atorvastatin.
--- NOTE | 2019-01-17 18:04 | CON ---
DATE OF CONSULTATION: PRIMARY BAG MACHINE OPERATOR HELPER: Dr. Ru Zepeda. REASON FOR CONSULTATION: Ventricular tachycardia noted on the defibrillator memory. HISTORY OF PRESENT ILLNESS: Mr. Andino is a 68-year-old gentleman. He is admitted to the hospital with recurrent falls. He has been here since the it appears. He did have his defibrillator interrogated and indicated he had some nonsustained ventricular tachycardia. He has not had any chest pain or pressure, but he is unable to really give much history unfortunately. The patient does have a history of previous stroke and has aphasia. PAST MEDICAL HISTORY: He has coronary artery disease. He did undergo cardiac catheterization by Dr. Zepeda in December of 2015. He was found to have a stenosis in the right coronary artery. He underwent flow wire, which showed it was not obstructive. Circumflex had mild plaquing. LAD, 30% plaque. Right coronary, 60% mid stenosis ulceration. Flow reserve was 0.87. Ejection fraction was 25% to 30%. MEDICATIONS: 1. Hydralazine 25 mg a day. 2. Lisinopril 20 mg a day. 3. Atorvastatin 80 mg a day. 4. Nifedipine 30 mg a day. 5. Carvedilol 6.25 mg twice a day. 6. Spironolactone 25 mg a day. 7. Potassium. 8. Metolazone. 9. Bumetanide. 10. Apixaban 5 mg, listed is once a day. REVIEW OF SYSTEMS: Not obtainable. He has aphasia. PHYSICAL EXAMINATION: GENERAL: He is a pleasant elderly gentleman, 68 years of age, looks older. VITAL SIGNS: Blood pressure 108/60, pulse 74 and regular. HEENT: Eyes; sclerae nonicteric. Mouth; mucous membranes moist. NECK: Supple. No lymphadenopathy. LUNGS: Clear. No wheezing. CARDIAC: Normal S1, normal S2. There is no murmur, rub, or gallop. ABDOMEN: Soft, nontender. EXTREMITIES: No clubbing or cyanosis. He has no significant edema. PERTINENT LABORATORY DATA: Hemoglobin is 11.1. Potassium is 3.9, sodium 127. The pacemaker interrogation indicates the patient does appear to be in atrial fibrillation. His OptiVol is not elevated currently. Does have some evidences of nonsustained ventricular tachycardia. All appear very brief. Do not appear to be responsible for his falls. ASSESSMENT: 1. History of congestive heart failure. 2. Nonobstructive coronary artery disease, had catheterization in 2016. 3. Atrial fibrillation. 4. Previous stroke. 5. Renal insufficiency. 6. Hyponatremia. PLAN: 1. Furosemide diuretic regimen has been simplified. He is no longer on metolazone and he is only on one loop diuretics now. 2. He is on spironolactone as well as potassium. 3. Apixaban dose should be increased to 5 mg twice a day. Dr. Zepeda to see the patient tomorrow for any further recommendations. Certainly could consider increasing carvedilol and stopping nifedipine. Job ID: [id number]
[2019-01-17] MEDS ORDERED: Insulin Glargine 5 UNITS in Pre-Filled Syringe SC SCH (21:00)
[2019-01-18 05:23] LABS: Anion Gap 16 mmol/L (10-20); BUN (Urea Nitrogen) 29 mg/dL (8.4-25.7); Calc. Creatinine Clearance 46 mL/min (70-130); Calcium 9.4 mg/dL (7.8-10.44); Carbon Dioxide 24 mmol/L (23-31); Chloride 92 mmol/L (98-107); Estimated GFR-MDRD 30; Glucose 259 mg/dL (80-115); Potassium 4.2 mmol/L (3.5-5.1); Sodium 128 mmol/L (136-145)
--- NOTE | 2019-01-18 07:07 | PDOC.HOSPP ---
- Subjective Encounter Date: 01/18/19 Encounter Time: 07:04 Subjective: pt felling okay this morning, laying down in bed watching TV. Denies any pain, SOB, or burning with urination. pt says that he had difficulty sleeping last night, however this is not new as he says he has had trouble sleeping all the nights he has been in the hospital. pt was seen by Dr. Melara yesterday and will be seen by Dr. Zepeda today who is his primary state game warden. - Objective Vital Signs & Weight: Vital Signs (12 hours) Temp Pulse Resp BP BP Pulse Ox 01/18/19 04:00 98.2 F 63 18 106/55 L 97 01/17/19 23:46 62 108/59 L 01/17/19 21:12 118/57 L 01/17/19 19:50 97.6 F 70 16 118/57 L 96 Weight Weight 102.3 kg I&O: 01/17/19 01/18/19 01/19/19 06:59 06:59 06:59 Intake Total 920 1200 Output Total 1400 1575 Balance -480 -375 Result Diagrams: 01/20/19 08:48 01/20/19 08:48 Additional Labs: Accuchecks 01/18/19 01/17/19 01/17/19 06:07 20:27 16:11 POC Glucose 272 H 304 H 199 H 01/17/19 10:07 POC Glucose 371 H Radiology Reviewed by me: No EKG Reviewed by me: No Hospitalist ROS - Review of Systems Respiratory: denies: shortness of breath Cardiovascular: denies: chest pain Genitourinary: denies: dysuria, frequency - Medication Medications: Active Medications Generic Name Dose Route Start Last Admin Trade Name Kaylie PRN Reason Stop Dose Admin Apixaban 5 mg 01/16/19 09:00 01/17/19 09:13 Eliquis PO 5 mg DAILY MEGAN Administration Aspirin 81 mg 01/16/19 09:00 01/17/19 09:12 Ecotrin PO 81 mg DAILY MEGAN Administration Atorvastatin Calcium 80 mg 01/16/19 09:00 01/17/19 09:13 Lipitor PO 80 mg DAILY MEGAN Administration Bumetanide 2 mg 01/16/19 09:00 01/17/19 09:13 Bumex PO 2 mg DAILY MEGAN Administration Carvedilol 6.25 mg 01/15/19 21:00 01/17/19 21:12 Coreg PO 6.25 mg BID MEGAN Administration Furosemide 20 mg 01/16/19 09:00 01/17/19 09:12 Lasix PO 20 mg QAM MEGAN Administration Glipizide 10 mg 01/16/19 08:00 01/17/19 08:08 Glucotrol Xl PO 10 mg QAM-WM MEGAN Administration Hydralazine HCl 25 mg 01/16/19 09:00 01/17/19 09:13 Apresoline PO 25 mg DAILY MEGAN Administration Levofloxacin 750 mg/ Device 150 mls @ 100 mls/hr 01/16/19 17:00 01/16/19 18: 14 IVPB 150 mls Q2DAYS@1700 MEGAN Administration Insulin Glargine 5 units/ 0.05 mls @ 0 mls/hr 01/17/19 21:00 01/17/19 21:12 Miscellaneous Medication SC 0.05 mls HS MEGAN Administration Insulin Human Lispro 0 units 01/14/19 21:25 01/17/19 21:11 Humalog SC 4 unit .BEDTIME SLIDING SC PRN Administration Bedtime Correctional Scale Insulin Human Lispro 0 units 01/17/19 15:00 01/17/19 18:21 Humalog SC 3 unit .AGGRESSIVE SLIDING PRN Administration Aggressive Correctional Scale Lisinopril 20 mg 01/16/19 09:00 01/17/19 09:11 Zestril PO 20 mg DAILY MEGAN Administration Metolazone 5 mg 01/16/19 09:00 01/17/19 08:08 Zaroxolyn PO 5 mg DAILY MEGAN Administration Nifedipine 30 mg 01/16/19 09:00 01/17/19 09:13 Procardia Xl PO 30 mg DAILY MEGAN Administration Pantoprazole Sodium 40 mg 01/16/19 09:00 01/17/19 09:13 Protonix PO 40 mg DAILY MEGAN Administration Potassium Chloride 10 meq 01/15/19 17:00 01/17/19 17:24 Klor-Con 10 PO 10 meq BID-WM MEGAN Administration Sertraline HCl 100 mg 01/16/19 09:00 01/17/19 09:13 Zoloft PO 100 mg DAILY MEGAN Administration Spironolactone 25 mg 01/16/19 08:00 01/17/19 09:13 Aldactone PO 25 mg QAM-WM MEGAN Administration - Exam General Appearance: awake alert Eye: negative: scleral icterus ENT: normocephalic atraumatic, moist mucosa Neck: supple, symmetric, no JVD Heart: RRR, no murmur, no gallops, no rubs, normal peripheral pulses, irregular Respiratory: CTAB, no wheezes, no rales, no ronchi, normal chest expansion, no tachypnea Extremities: no cyanosis, no clubbing, 1+ LE edema Skin: normal turgor, no lesions, no rashes Neurological: CN's grossly intact Musculoskeletal: normal tone Psychiatric: normal affect, normal behavior, A&O x 3 Hosp A/P (1) NSVT (nonsustained ventricular tachycardia) Code(s): I47.2 - VENTRICULAR TACHYCARDIA Status: Acute (2) UTI (urinary tract infection) Status: Acute (3) DM2 (diabetes mellitus, type 2) Status: Chronic (4) BPH (benign prostatic hyperplasia) Code(s): N40.0 - BENIGN PROSTATIC HYPERPLASIA WITHOUT LOWER URINRY TRACT SYMP Status: Chronic (5) Dyslipidemia Code(s): E78.5 - HYPERLIPIDEMIA, UNSPECIFIED Status: Chronic (6) Acute worsening of stage 3 chronic kidney disease Code(s): N18.3 - CHRONIC KIDNEY DISEASE, STAGE 3 (MODERATE) Status: Resolved - Plan pt received 1st does of Levaquin on 01/16, should receive 2nd dose today. UTI symptoms seem to be resolving. walking program doing well- ambulated 100 ft. continue with ambulation as tolerated. Glucose 272 this AM,which is close to his baseline- inulin was increased yesterday. lab work review- hyponatemic at 127 with increased BUN at 29 and Cr at 2.21- Cr. is close to baseline. High sugars could explain the low Na (corrected Na is 131) NSVT- Cardiology was consulted (Dr. Trejo) and simplified Furosemide regimen and increased Apixiban to [id number] Zepeda who is his primary state game warden will see him today to consider further med modifications Addendum by Rj Watkins MD: Chart reviewed, pt seen by me. Discussed case with Mr. Shearer. Agree with plan of care as documented. Please refer to my separate progress note for further details.
[2019-01-18] MEDS: Bumetanide 1 MG TAB PO SCH ×2 (08:51→10:17)
[2019-01-18] MEDS: Furosemide 20 MG TAB PO SCH ×2 (08:51→09:38)
[2019-01-18] MEDS: Atorvastatin Calcium 40 MG TAB PO SCH (08:51)
[2019-01-18] MEDS: Apixaban 5 MG TAB PO SCH ×2 (08:51→20:20)
[2019-01-18] MEDS: Lisinopril 20 MG TAB PO SCH (08:51)
[2019-01-18] MEDS: Potassium Chloride 10 MEQ TAB PO SCH (08:51)
[2019-01-18] MEDS: Aspirin 81 mg Enteric Coated Tablet PO SCH (08:52)
[2019-01-18] MEDS: hydrALAZINE 25 MG TAB PO SCH (08:52)
[2019-01-18] MEDS: NIFEdipine XL 30 MG TAB PO SCH (08:52)
[2019-01-18] MEDS: Carvedilol 6.25 MG TAB PO SCH ×2 (08:52→20:20)
[2019-01-18] MEDS: Metolazone 5 MG TAB PO SCH ×2 (08:52→10:17)
[2019-01-18] MEDS: HumaLOG 300 UNITS/3 ML VIAL SC PRN ×4 (08:58→20:22)
[2019-01-18] MEDS: Spironolactone 25 MG TAB PO SCH (09:38)
--- NOTE | 2019-01-18 14:42 | PDOC.HOSPP ---
- Subjective Encounter Date: 01/18/19 Encounter Time: 07:20 Subjective: Pt seen for followup re: UTI. says he feels better. No chest pain. - Objective Vital Signs & Weight: Vital Signs (12 hours) Temp Pulse Resp BP BP BP Pulse Ox 01/18/19 08:52 61 122/67 01/18/19 08:51 122/67 01/18/19 07:14 98.7 F 61 18 122/67 97 01/18/19 04:00 98.2 F 63 18 106/55 L 97 Weight Weight 225 lb 8.526 oz I&O: 01/17/19 01/18/19 01/19/19 06:59 06:59 06:59 Intake Total 920 1200 Output Total 1400 1575 Balance -480 -375 Result Diagrams: 01/17/19 05:27 01/18/19 04:24 Additional Labs: Accuchecks 01/18/19 01/18/19 01/17/19 11:33 06:07 20:27 POC Glucose 258 H 272 H 304 H 01/17/19 16:11 POC Glucose 199 H labs and MARs reviewed by me EKG Reviewed by me: Yes (Tele: NSR) Hospitalist ROS - Review of Systems Cardiovascular: denies: chest pain, palpitations, orthopnea, paroxysmal noc. dyspnea, edema, light headedness Gastrointestinal: denies: nausea, vomitting, abdominal pain, diarrhea, constipation, melena, hematochezia - Medication Medications: Active Medications Generic Name Dose Route Start Last Admin Trade Name Freq PRN Reason Stop Dose Admin Aspirin 81 mg 01/16/19 09:00 01/18/19 08:52 Ecotrin PO 81 mg DAILY MEGAN Administration Atorvastatin Calcium 80 mg 01/16/19 09:00 01/18/19 08:51 Lipitor PO 80 mg DAILY MEGAN Administration Carvedilol 6.25 mg 01/15/19 21:00 01/18/19 08:52 Coreg PO 6.25 mg BID MEGAN Administration Furosemide 20 mg 01/16/19 09:00 01/18/19 09:38 Lasix PO 20 mg QAM MEGAN Administration Glipizide 10 mg 01/16/19 08:00 01/18/19 08:51 Glucotrol Xl PO 10 mg QAM-WM MEGAN Administration Hydralazine HCl 25 mg 01/16/19 09:00 01/18/19 08:52 Apresoline PO 25 mg DAILY MEGAN Administration Levofloxacin 750 mg/ Device 150 mls @ 100 mls/hr 01/16/19 17:00 01/16/19 18: 14 IVPB 150 mls Q2DAYS@1700 MEGAN Administration Insulin Glargine 5 units/ 0.05 mls @ 0 mls/hr 01/17/19 21:00 01/17/19 21:12 Miscellaneous Medication SC 0.05 mls HS MEGAN Administration Insulin Human Lispro 0 units 01/14/19 21:25 01/17/19 21:11 Humalog SC 4 unit .BEDTIME SLIDING SC PRN Administration Bedtime Correctional Scale Insulin Human Lispro 0 units 01/17/19 15:00 01/18/19 12:39 Humalog SC 9 unit .AGGRESSIVE SLIDING PRN Administration Aggressive Correctional Scale Lisinopril 20 mg 01/16/19 09:00 01/18/19 08:51 Zestril PO 20 mg DAILY MEGAN Administration Nifedipine 30 mg 01/16/19 09:00 01/18/19 08:52 Procardia Xl PO 30 mg DAILY MEGAN Administration Pantoprazole Sodium 40 mg 01/16/19 09:00 01/18/19 08:55 Protonix PO 40 mg DAILY MEGAN Administration Sertraline HCl 100 mg 01/16/19 09:00 01/18/19 08:51 Zoloft PO 100 mg DAILY MEGAN Administration Spironolactone 25 mg 01/16/19 08:00 01/18/19 09:38 Aldactone PO 25 mg QAM-WM MEGAN Administration - Exam General Appearance: NAD Eye: anicteric sclera ENT: moist mucosa Neck: supple Heart: RRR Respiratory: CTAB Gastrointestinal: soft Extremities: no cyanosis Neurological: no weakness Psychiatric: normal affect, normal behavior Hosp A/P (1) UTI (urinary tract infection) Status: Acute (2) NSVT (nonsustained ventricular tachycardia) Code(s): I47.2 - VENTRICULAR TACHYCARDIA Status: Acute (3) DM2 (diabetes mellitus, type 2) Status: Chronic (4) BPH (benign prostatic hyperplasia) Code(s): N40.0 - BENIGN PROSTATIC HYPERPLASIA WITHOUT LOWER URINRY TRACT SYMP Status: Chronic (5) Dyslipidemia Code(s): E78.5 - HYPERLIPIDEMIA, UNSPECIFIED Status: Chronic (6) Acute worsening of stage 3 chronic kidney disease Code(s): N18.3 - CHRONIC KIDNEY DISEASE, STAGE 3 (MODERATE) Status: Resolved - Plan continue antibiotics, out of bed/ambulate Continue Levaquin for UTI. Discontinue metolazone, bumetanide and potassium chloride. Ambulate patient. Blood sugars high, increase lantus to 10 units HS. Continue atorvastatin.
[2019-01-18] MEDS ORDERED: Insulin Glargine 10 UNITS in Pre-Filled Syringe SC SCH (21:00)
[2019-01-19 05:38] LABS: Anion Gap 16 mmol/L (10-20); BUN (Urea Nitrogen) 37 mg/dL (8.4-25.7); Calc. Creatinine Clearance 43 mL/min (70-130); Calcium 9.7 mg/dL (7.8-10.44); Carbon Dioxide 26 mmol/L (23-31); Cardiac Risk 6.9 (Less than 4.5); Chloride 92 mmol/L (98-107); Cholesterol 193 mg/dl (< 200 Desired); Estimated GFR-MDRD 27; Glucose 265 mg/dL (80-115); HDL Cholesterol 28 mg/dL (>60 Neg Risk); LDL Cholesterol, Calculated 109 mg/dL; Potassium 3.9 mmol/L (3.5-5.1); Sodium 130 mmol/L (136-145); Triglycerides 278 mg/dL (Less than 150)
--- NOTE | 2019-01-19 06:50 | PDOC.HOSPP ---
- Subjective Encounter Date: 01/19/19 Encounter Time: 06:48 Subjective: pt is feeling similar to yesterday, not in any pain. denies pain with urination , headaches, fevers, chills, c/p, SOB, LE edema. Admits to constipation with last BM x1 wk ago. slept well through the night, ambulated well yesterday (up and down the jeff) and has normal appetite. - Objective Vital Signs & Weight: Vital Signs (12 hours) Temp Pulse Resp BP BP Pulse Ox 01/19/19 02:52 98.1 F 72 12 108/61 100 01/18/19 23:51 53 L 106/61 01/18/19 20:20 129/72 01/18/19 18:50 98.2 F 82 16 129/72 98 Weight Weight 102.7 kg I&O: 01/17/19 01/18/19 01/19/19 06:59 06:59 06:59 Intake Total 920 1200 720 Output Total 1400 1575 950 Balance -480 -613 -496 Result Diagrams: 01/20/19 08:48 01/20/19 08:48 Additional Labs: Accuchecks 01/18/19 01/18/19 01/18/19 20:21 17:29 11:33 POC Glucose 326 H 245 H 258 H Radiology Reviewed by me: No EKG Reviewed by me: No Hospitalist ROS - Review of Systems Constitutional: denies: fever, chills Respiratory: denies: cough, shortness of breath, wheezing Cardiovascular: denies: chest pain, palpitations, edema Gastrointestinal: reports: constipation. denies: abdominal pain, diarrhea Genitourinary: reports: frequency. denies: dysuria, hematuria - Medication Medications: Active Medications Generic Name Dose Route Start Last Admin Trade Name Freq PRN Reason Stop Dose Admin Apixaban 5 mg 01/18/19 21:00 01/18/19 20:20 Eliquis PO 5 mg BID MEGAN Administration Aspirin 81 mg 01/16/19 09:00 01/18/19 08:52 Ecotrin PO 81 mg DAILY MEGAN Administration Atorvastatin Calcium 80 mg 01/16/19 09:00 01/18/19 08:51 Lipitor PO 80 mg DAILY MEGAN Administration Carvedilol 6.25 mg 01/15/19 21:00 01/18/19 20:20 Coreg PO 6.25 mg BID MEGAN Administration Glipizide 10 mg 01/16/19 08:00 01/18/19 08:51 Glucotrol Xl PO 10 mg QAM-WM MEGAN Administration Levofloxacin 750 mg/ Device 150 mls @ 100 mls/hr 01/16/19 17:00 01/18/19 17: 34 IVPB 150 mls Q2DAYS@1700 MEGAN Administration Insulin Glargine 10 units/ 0.1 mls @ 0 mls/hr 01/18/19 21:00 01/18/19 20:20 Miscellaneous Medication SC 0.1 mls HS MEGAN Administration Insulin Human Lispro 0 units 01/14/19 21:25 01/18/19 20:22 Humalog SC 4 unit .BEDTIME SLIDING SC PRN Administration Bedtime Correctional Scale Insulin Human Lispro 0 units 01/17/19 15:00 01/18/19 17:37 Humalog SC 6 unit .AGGRESSIVE SLIDING PRN Administration Aggressive Correctional Scale Pantoprazole Sodium 40 mg 01/16/19 09:00 01/18/19 08:55 Protonix PO 40 mg DAILY MEGAN Administration Sertraline HCl 100 mg 01/16/19 09:00 01/18/19 08:51 Zoloft PO 100 mg DAILY MEGAN Administration - Exam General Appearance: awake alert ENT: normocephalic atraumatic, moist mucosa Neck: supple, no JVD Heart: no murmur, irregular Respiratory: CTAB, no wheezes, no rales, no ronchi, normal chest expansion Gastrointestinal: soft, non-tender, non-distended, diminished bowl sounds Extremities: no cyanosis, no edema Skin: normal turgor Neurological: CN's grossly intact Musculoskeletal: normal tone, normal strength Psychiatric: normal affect, normal behavior, A&O x 3 Hosp A/P (1) NSVT (nonsustained ventricular tachycardia) Code(s): I47.2 - VENTRICULAR TACHYCARDIA Status: Acute (2) UTI (urinary tract infection) Status: Acute (3) DM2 (diabetes mellitus, type 2) Status: Chronic (4) BPH (benign prostatic hyperplasia) Code(s): N40.0 - BENIGN PROSTATIC HYPERPLASIA WITHOUT LOWER URINRY TRACT SYMP Status: Chronic (5) Dyslipidemia Code(s): E78.5 - HYPERLIPIDEMIA, UNSPECIFIED Status: Chronic (6) Acute worsening of stage 3 chronic kidney disease Code(s): N18.3 - CHRONIC KIDNEY DISEASE, STAGE 3 (MODERATE) Status: Resolved - Plan pt received 2nd does of Levaquin on 01/18. UTI symptoms seem to be resolving. Consider d/c abx. walking program doing well- ambulated again up and down the jeff. continue with ambulation as tolerated. Glucose 326 yesterday PM,which is slightly higher than his baseline- inulin was increased yesterday to 10 units lantus plus sliding scale insulin. consider increasing lantus to 15 units today. lab work review- hyponatremia resolving with Na level of 130 on AM labs; BUN and Cr. still elevated however. continue to monitor. cardiology d/c diuretics. NSVT/Cardiology -echo done yesterday and pending review from cardiology. showed EF of 30-35%, mild MR, aortic sclerosis, mild AR, and mild TR. cardiology d/c diuretics. If pt continues to stabilize, consider plans for d/c soon with cardiology recommendations Addendum by Rj Watkins MD: Chart reviewed, pt seen by me. Discussed case with Mr. Shearer. Agree with plan of care as documented. Please refer to my separate progress note for further details.
[2019-01-19] MEDS: Apixaban 5 MG TAB PO SCH ×2 (09:25→20:17)
[2019-01-19] MEDS: Aspirin 81 mg Enteric Coated Tablet PO SCH (09:26)
[2019-01-19] MEDS: hydrALAZINE 25 MG TAB PO SCH ×2 (09:26→20:18)
[2019-01-19] MEDS: Atorvastatin Calcium 40 MG TAB PO SCH (09:26)
[2019-01-19] MEDS: Carvedilol 6.25 MG TAB PO SCH ×2 (09:26→20:18)
[2019-01-19] MEDS: HumaLOG 300 UNITS/3 ML VIAL SC PRN ×3 (11:57→20:19)
--- NOTE | 2019-01-19 15:29 | PDOC.HOSPP ---
- Subjective Encounter Date: 01/19/19 Encounter Time: 07:20 Subjective: Pt seen for followup re: UTI. No complaints today. - Objective Vital Signs & Weight: Vital Signs (12 hours) Temp Pulse Resp BP Pulse Ox 01/19/19 12:00 98 F 65 18 120/61 98 01/19/19 09:26 62 01/19/19 09:23 98.9 F 62 18 107/57 L 98 Weight Weight 226 lb 6.636 oz I&O: 01/18/19 01/19/19 01/20/19 06:59 06:59 06:59 Intake Total 1200 720 Output Total 1575 950 Balance -375 -230 Result Diagrams: 01/17/19 05:27 01/19/19 04:05 Additional Labs: Accuchecks 01/19/19 01/18/19 01/18/19 10:43 20:21 17:29 POC Glucose 316 H 326 H 245 H Labs and MARs reviewed by me Hospitalist ROS - Review of Systems Cardiovascular: denies: chest pain, palpitations, orthopnea, paroxysmal noc. dyspnea, edema, light headedness Gastrointestinal: denies: nausea, vomitting, abdominal pain, diarrhea, constipation, melena, hematochezia - Medication Medications: Active Medications Generic Name Dose Route Start Last Admin Trade Name Freq PRN Reason Stop Dose Admin Apixaban 5 mg 01/18/19 21:00 01/19/19 09:25 Eliquis PO 5 mg BID MEGAN Administration Aspirin 81 mg 01/16/19 09:00 01/19/19 09:26 Ecotrin PO 81 mg DAILY MEGAN Administration Atorvastatin Calcium 80 mg 01/16/19 09:00 01/19/19 09:26 Lipitor PO 80 mg DAILY MEGAN Administration Carvedilol 6.25 mg 01/15/19 21:00 01/19/19 09:26 Coreg PO 6.25 mg BID MEGAN Administration Glipizide 10 mg 01/16/19 08:00 01/19/19 09:26 Glucotrol Xl PO 10 mg QAM-WM MEGAN Administration Hydralazine HCl 50 mg 01/19/19 09:00 01/19/19 09:26 Apresoline PO 50 mg BID MEGAN Administration Insulin Human Lispro 0 units 01/14/19 21:25 01/18/19 20:22 Humalog SC 4 unit .BEDTIME SLIDING SC PRN Administration Bedtime Correctional Scale Insulin Human Lispro 0 units 01/17/19 15:00 01/19/19 11:57 Humalog SC 11 unit .AGGRESSIVE SLIDING PRN Administration Aggressive Correctional Scale Pantoprazole Sodium 40 mg 01/16/19 09:00 01/19/19 09:26 Protonix PO 40 mg DAILY MEGAN Administration Sertraline HCl 100 mg 01/16/19 09:00 01/19/19 09:25 Zoloft PO 100 mg DAILY MEGAN Administration Sodium Chloride 10 ml 01/14/19 18:52 01/19/19 09:25 Flush - Normal Saline IVF 10 ml PRN PRN Administration Saline Flush - Exam General Appearance: NAD Eye: anicteric sclera ENT: moist mucosa Neck: supple Heart: RRR Respiratory: CTAB Gastrointestinal: soft Neurological: no weakness Psychiatric: normal affect, normal behavior Hosp A/P (1) UTI (urinary tract infection) Status: Acute (2) NSVT (nonsustained ventricular tachycardia) Code(s): I47.2 - VENTRICULAR TACHYCARDIA Status: Acute (3) DM2 (diabetes mellitus, type 2) Status: Chronic (4) BPH (benign prostatic hyperplasia) Code(s): N40.0 - BENIGN PROSTATIC HYPERPLASIA WITHOUT LOWER URINRY TRACT SYMP Status: Chronic (5) Dyslipidemia Code(s): E78.5 - HYPERLIPIDEMIA, UNSPECIFIED Status: Chronic (6) Acute worsening of stage 3 chronic kidney disease Code(s): N18.3 - CHRONIC KIDNEY DISEASE, STAGE 3 (MODERATE) Status: Resolved - Plan out of bed/ambulate Discontinue levofloxacin and observe. Diuretics and lisinopril discontinued due to renal failure. Ambulate patient. Blood sugars high, increase lantus to 15 units HS. Will continue atorvastatin.
[2019-01-19] MEDS: Sodium Chloride 0.9% 1,000 ML IV SCH (16:49)
[2019-01-19] MEDS ORDERED: Insulin Glargine 15 UNITS in Pre-Filled Syringe 1 EACH SC SCH (21:00)
--- NOTE | 2019-01-20 06:48 | PDOC.HOSPP ---
- Subjective Encounter Date: 01/20/19 Encounter Time: 06:46 Subjective: pt slept well through the night with no overnight events. denies pain, fevers, chills, sweats, SOB, c/p, ab pain, decrease in appetite, or leg swelling. Pt had a bowel movement yesterday, denies diarrhea. pt says that he ambulated again well yesterday down the jeff and back. denies any dysuria. pt has no complaint and wants to know when he will be able to be d/c from hospital. - Objective Vital Signs & Weight: Vital Signs (12 hours) Temp Pulse Resp BP BP Pulse Ox 01/20/19 04:30 98.1 F 60 16 123/61 96 01/19/19 23:52 69 108/61 01/19/19 20:18 66 105/58 L 01/19/19 19:05 97.7 F 66 16 105/58 L 99 Weight Weight 102 kg I&O: 01/18/19 01/19/19 01/20/19 06:59 06:59 06:59 Intake Total 8328 911 0389 Output Total 2031 461 7095 Balance -375 -230 280 Result Diagrams: 01/20/19 08:48 01/20/19 08:48 Additional Labs: Accuchecks 01/20/19 01/19/19 01/19/19 05:05 19:59 16:59 POC Glucose 260 H 331 H 293 H 01/19/19 10:43 POC Glucose 316 H Radiology Reviewed by me: Yes EKG Reviewed by me: Yes Hospitalist ROS - Review of Systems Constitutional: denies: fever, chills, sweats Respiratory: denies: shortness of breath, pleuritic pain Cardiovascular: denies: chest pain, edema Gastrointestinal: denies: abdominal pain, diarrhea, constipation Genitourinary: denies: dysuria, frequency, incontinence - Medication Medications: Active Medications Generic Name Dose Route Start Last Admin Trade Name Freq PRN Reason Stop Dose Admin Apixaban 5 mg 01/18/19 21:00 01/19/19 20:17 Eliquis PO 5 mg BID MEGAN Administration Aspirin 81 mg 01/16/19 09:00 01/19/19 09:26 Ecotrin PO 81 mg DAILY MEGAN Administration Atorvastatin Calcium 80 mg 01/16/19 09:00 01/19/19 09:26 Lipitor PO 80 mg DAILY MEGAN Administration Carvedilol 6.25 mg 01/15/19 21:00 01/19/19 20:18 Coreg PO 6.25 mg BID MEGAN Administration Glipizide 10 mg 01/16/19 08:00 01/19/19 09:26 Glucotrol Xl PO 10 mg QAM-WM MEGAN Administration Hydralazine HCl 50 mg 01/19/19 09:00 01/19/19 20:18 Apresoline PO 50 mg BID MEGAN Administration Insulin Glargine 15 units/ 0.15 mls @ 0 mls/hr 01/19/19 21:00 01/19/19 20:18 Miscellaneous Medication SC 0.15 mls HS MEGAN Administration Sodium Chloride 1,000 mls @ 50 mls/hr 01/19/19 15:00 01/19/19 16:49 Normal Saline 0.9% IV 1,000 mls .Q20H MEGAN Administration Insulin Human Lispro 0 units 01/14/19 21:25 01/19/19 20:19 Humalog SC 4 unit .BEDTIME SLIDING SC PRN Administration Bedtime Correctional Scale Insulin Human Lispro 0 units 01/17/19 15:00 01/19/19 17:24 Humalog SC 9 unit .AGGRESSIVE SLIDING PRN Administration Aggressive Correctional Scale Pantoprazole Sodium 40 mg 01/16/19 09:00 01/19/19 09:26 Protonix PO 40 mg DAILY MEGAN Administration Sertraline HCl 100 mg 01/16/19 09:00 01/19/19 09:25 Zoloft PO 100 mg DAILY MEGAN Administration Sodium Chloride 10 ml 01/14/19 18:52 01/19/19 09:25 Flush - Normal Saline IVF 10 ml PRN PRN Administration Saline Flush - Exam General Appearance: awake alert ENT: normocephalic atraumatic, moist mucosa Neck: supple, no JVD Heart: no murmur, no gallops, no rubs, irregular Respiratory: CTAB Gastrointestinal: soft, non-tender, non-distended, normal bowel sounds, no palpable masses, no hepatomegaly Extremities: no cyanosis, no clubbing, no edema Skin: normal turgor Neurological: speech deficit Musculoskeletal: normal tone, normal strength, no muscle wasting Psychiatric: normal affect, normal behavior, A&O x 3 Hosp A/P (1) NSVT (nonsustained ventricular tachycardia) Code(s): I47.2 - VENTRICULAR TACHYCARDIA Status: Acute (2) UTI (urinary tract infection) Status: Acute (3) DM2 (diabetes mellitus, type 2) Status: Chronic (4) BPH (benign prostatic hyperplasia) Code(s): N40.0 - BENIGN PROSTATIC HYPERPLASIA WITHOUT LOWER URINRY TRACT SYMP Status: Chronic (5) Dyslipidemia Code(s): E78.5 - HYPERLIPIDEMIA, UNSPECIFIED Status: Chronic (6) Acute worsening of stage 3 chronic kidney disease Code(s): N18.3 - CHRONIC KIDNEY DISEASE, STAGE 3 (MODERATE) Status: Resolved - Plan abx d/c yesterday. UTI symptoms resolved. ambulated again up and down the jeff. continue with ambulation as tolerated. Glucose 260 this AM (down from 331 yesterday). lantus was increased yesterday to 15 units today. 260 is around his baseline. lab work review- BUN and Cr. still elevated yesterday raising concern for SAFIA. continue to monitor. cardiology d/c diuretics and lisinopril yesterday. consider getting a CMP today to reassess kidney function. NSVT/Cardiology -echo done yesterday. showed EF of 30-35% (improved from previous echo ) , mild MR, aortic sclerosis, mild AR, and mild TR. pt continues to stabilize, consider plans for d/c soon. Addendum by Rj Watkins MD: Chart reviewed, pt seen by me. Discussed case with Mr. Shearer. Agree with plan of care as documented. Please refer to my separate progress note for further details.
[2019-01-20] MEDS: hydrALAZINE 25 MG TAB PO SCH ×2 (08:05→21:33)
[2019-01-20] MEDS: Ezetimibe 10 MG TAB PO SCH (08:06)
[2019-01-20] MEDS: Aspirin 81 mg Enteric Coated Tablet PO SCH (08:06)
[2019-01-20] MEDS: Carvedilol 6.25 MG TAB PO SCH ×2 (08:06→21:33)
[2019-01-20] MEDS: HumaLOG 300 UNITS/3 ML VIAL SC PRN ×3 (08:06→21:33)
[2019-01-20] MEDS: Apixaban 5 MG TAB PO SCH ×2 (08:06→21:33)
[2019-01-20] MEDS: Atorvastatin Calcium 40 MG TAB PO SCH (08:06)
[2019-01-20] MEDS ORDERED: Insulin Glargine 5 UNITS in Pre-Filled Syringe 1 EACH SC SCH (08:45)
[2019-01-20 09:01] LABS: #Eosinphils 0.2 thou/uL (0.0-0.7); #Lymphocytes 1.9 thou/uL (1.20-3.40); #Monocytes 0.6 thou/uL (0.11-0.59); #Neutrophils 4.4 thou/uL (1.40-6.50); %Basophils 0.4 % (0.0-1.0); %Eosinophils 2.3 % (0.0-10.0); %Lymphocytes 27.3 % (21.0-51.0); %Monocytes 8.2 % (0.0-10.0); %Neutrophils 61.8 % (42.0-75.0); Hemoglobin 11.7 g/dL (14.0-18.0); Mean Corpuscular HGB CONC 34.7 g/dL (32.0-36.0); Mean Corpuscular Hemoglobin 31.4 pg (27.0-31.0); Mean Corpuscular Volume 90.6 fL (78.0-98.0); Mean Platelet Volume 7.6 fL (7.4-10.4); Platelet Count 228 thou/uL (130-400); RBC Distribution Width 14.4 % (11.5-14.5); Red Blood Cell (RBC) Count 3.73 mill/uL (4.70-6.10); White Blood Cell (WBC) Count 7.1 thou/uL (4.8-10.8)
[2019-01-20 09:21] LABS: Anion Gap 14 mmol/L (10-20); BUN (Urea Nitrogen) 37 mg/dL (8.4-25.7); Calc. Creatinine Clearance 49 mL/min (70-130); Calcium 9.2 mg/dL (7.8-10.44); Carbon Dioxide 23 mmol/L (23-31); Chloride 96 mmol/L (98-107); Estimated GFR-MDRD 32; Glucose 225 mg/dL (80-115); Potassium 3.2 mmol/L (3.5-5.1); Sodium 130 mmol/L (136-145)
--- NOTE | 2019-01-20 13:46 | PDOC.HOSPP ---
- Subjective Encounter Date: 01/20/19 Encounter Time: 07:40 Subjective: Pt seen for followup re: NSVT. Says he feels better. Ambulating. - Objective Vital Signs & Weight: Vital Signs (12 hours) Temp Pulse Resp BP BP BP BP 01/20/19 12:00 98.1 F 67 18 01/20/19 11:00 98.4 F 56 L 18 125/58 L 121/60 01/20/19 08:06 121/74 01/20/19 08:05 63 121/74 01/20/19 08:00 01/20/19 07:40 98.1 F 63 18 121/74 01/20/19 04:30 98.1 F 60 16 123/61 BP Pulse Ox 01/20/19 12:00 96 01/20/19 11:00 110/58 L 96 01/20/19 08:06 01/20/19 08:05 01/20/19 08:00 99 01/20/19 07:40 99 01/20/19 04:30 96 Weight Weight 224 lb 13.944 oz I&O: 01/19/19 01/20/19 01/21/19 06:59 06:59 06:59 Intake Total 720 1630 Output Total 950 1350 Balance -230 280 Result Diagrams: 01/20/19 08:48 01/20/19 08:48 Additional Labs: Accuchecks 01/20/19 01/20/19 01/19/19 10:19 05:05 19:59 POC Glucose 308 H 260 H 331 H 01/19/19 16:59 POC Glucose 293 H Labs and MARs reviewed by la Hospitalist ROS - Review of Systems Cardiovascular: denies: chest pain, palpitations, orthopnea, paroxysmal noc. dyspnea, edema, light headedness Gastrointestinal: denies: nausea, vomitting, abdominal pain, diarrhea, constipation, melena, hematochezia - Medication Medications: Active Medications Generic Name Dose Route Start Last Admin Trade Name Freq PRN Reason Stop Dose Admin Apixaban 5 mg 01/18/19 21:00 01/20/19 08:06 Eliquis PO 5 mg BID MEGAN Administration Aspirin 81 mg 01/16/19 09:00 01/20/19 08:06 Ecotrin PO 81 mg DAILY MEGAN Administration Atorvastatin Calcium 80 mg 01/16/19 09:00 01/20/19 08:06 Lipitor PO 80 mg DAILY MEGAN Administration Carvedilol 6.25 mg 01/15/19 21:00 01/20/19 08:06 Coreg PO 6.25 mg BID MEGAN Administration Ezetimibe 10 mg 01/20/19 09:00 01/20/19 08:06 Zetia PO 10 mg DAILY MEGAN Administration Glipizide 10 mg 01/16/19 08:00 01/20/19 08:06 Glucotrol Xl PO 10 mg QAM-WM MEGAN Administration Hydralazine HCl 50 mg 01/19/19 09:00 01/20/19 08:05 Apresoline PO 50 mg BID MEGAN Administration Sodium Chloride 1,000 mls @ 50 mls/hr 01/19/19 15:00 01/19/19 16:49 Normal Saline 0.9% IV 1,000 mls .Q20H MEGAN Administration Insulin Human Lispro 0 units 01/14/19 21:25 01/19/19 20:19 Humalog SC 4 unit .BEDTIME SLIDING SC PRN Administration Bedtime Correctional Scale Insulin Human Lispro 0 units 01/17/19 15:00 01/20/19 08:06 Humalog SC 9 unit .AGGRESSIVE SLIDING PRN Administration Aggressive Correctional Scale Pantoprazole Sodium 40 mg 01/16/19 09:00 01/20/19 08:05 Protonix PO 40 mg DAILY MEGAN Administration Sertraline HCl 100 mg 01/16/19 09:00 01/20/19 08:06 Zoloft PO 100 mg DAILY MEGAN Administration Sodium Chloride 10 ml 01/14/19 18:52 01/19/19 09:25 Flush - Normal Saline IVF 10 ml PRN PRN Administration Saline Flush - Exam General Appearance: NAD Eye: anicteric sclera ENT: moist mucosa Neck: supple Heart: RRR Respiratory: CTAB Gastrointestinal: soft, non-tender Neurological: no weakness Psychiatric: normal affect, normal behavior Hosp A/P (1) NSVT (nonsustained ventricular tachycardia) Code(s): I47.2 - VENTRICULAR TACHYCARDIA Status: Acute (2) DM2 (diabetes mellitus, type 2) Status: Chronic (3) BPH (benign prostatic hyperplasia) Code(s): N40.0 - BENIGN PROSTATIC HYPERPLASIA WITHOUT LOWER URINRY TRACT SYMP Status: Chronic (4) Dyslipidemia Code(s): E78.5 - HYPERLIPIDEMIA, UNSPECIFIED Status: Chronic (5) Acute worsening of stage 3 chronic kidney disease Code(s): N18.3 - CHRONIC KIDNEY DISEASE, STAGE 3 (MODERATE) Status: Resolved (6) UTI (urinary tract infection) Status: Resolved - Plan out of bed/ambulate No recurrence of NSVT. Creatinine improved to 2.09 today. UTI resolved, pt is off of antibiotics. Blood sugars high, increase lantus dose.
[2019-01-20] MEDS: Sodium Chloride 0.9% 1,000 ML IV SCH (14:01)
[2019-01-20] MEDS: Insulin Glargine 20 UNITS in Pre-Filled Syringe 1 EACH SC SCH ×2 (22:09→22:27)
[2019-01-21 05:44] LABS: Anion Gap 13 mmol/L (10-20); BUN (Urea Nitrogen) 33 mg/dL (8.4-25.7); Calc. Creatinine Clearance 53 mL/min (70-130); Calcium 8.8 mg/dL (7.8-10.44); Carbon Dioxide 27 mmol/L (23-31); Chloride 97 mmol/L (98-107); Estimated GFR-MDRD 35; Glucose 216 mg/dL (80-115); Potassium 3.5 mmol/L (3.5-5.1); Sodium 133 mmol/L (136-145)
[2019-01-21] MEDS: Sodium Chloride 0.9% 1,000 ML IV SCH (06:10)
[2019-01-21] MEDS: Atorvastatin Calcium 40 MG TAB PO SCH (08:26)
[2019-01-21] MEDS: Ezetimibe 10 MG TAB PO SCH (08:26)
[2019-01-21] MEDS: hydrALAZINE 25 MG TAB PO SCH ×2 (08:27→20:40)
[2019-01-21] MEDS: Apixaban 5 MG TAB PO SCH ×2 (08:27→20:39)
[2019-01-21] MEDS: Carvedilol 6.25 MG TAB PO SCH ×2 (08:27→20:39)
[2019-01-21] MEDS: Aspirin 81 mg Enteric Coated Tablet PO SCH (08:27)
[2019-01-21] MEDS: HumaLOG 300 UNITS/3 ML VIAL SC PRN ×3 (08:28→20:41)
--- NOTE | 2019-01-21 09:21 | PDOC.HOSPP ---
- Subjective Encounter Date: 01/21/19 Subjective: He is sitting comfortably in bed in no acute distress, block no complaints, he was seen by Cardiology. - Objective Vital Signs & Weight: Vital Signs (12 hours) Temp Pulse Resp BP BP BP Pulse Ox 01/21/19 08:27 73 128/60 01/21/19 07:52 99.2 F 73 18 128/60 96 01/21/19 04:00 99.5 F 68 18 104/55 L 100 Weight Weight 222 lb 9.6 oz I&O: 01/20/19 01/21/19 01/22/19 06:59 06:59 06:59 Intake Total 1630 2160 Output Total 1350 1010 Balance 280 1150 Result Diagrams: 01/20/19 08:48 01/21/19 04:03 Additional Labs: Accuchecks 01/21/19 01/20/19 01/20/19 05:47 20:10 17:03 POC Glucose 240 H 255 H 267 H 01/20/19 01/19/19 10:19 05:52 POC Glucose 308 H 285 H Hospitalist ROS - Medication Medications: Active Medications Generic Name Dose Route Start Last Admin Trade Name Freq PRN Reason Stop Dose Admin Apixaban 5 mg 01/18/19 21:00 01/21/19 08:27 Eliquis PO 5 mg BID MEGAN Administration Aspirin 81 mg 01/16/19 09:00 01/21/19 08:27 Ecotrin PO 81 mg DAILY MEGAN Administration Atorvastatin Calcium 80 mg 01/16/19 09:00 01/21/19 08:26 Lipitor PO 80 mg DAILY MEGAN Administration Carvedilol 6.25 mg 01/15/19 21:00 01/21/19 08:27 Coreg PO 6.25 mg BID MEGAN Administration Ezetimibe 10 mg 01/20/19 09:00 01/21/19 08:26 Zetia PO 10 mg DAILY MEGAN Administration Glipizide 10 mg 01/16/19 08:00 01/20/19 08:06 Glucotrol Xl PO 10 mg QAM-WM MEGAN Administration Sodium Chloride 1,000 mls @ 50 mls/hr 01/19/19 15:00 01/21/19 06:10 Normal Saline 0.9% IV Not Given .Q20H MEGAN Insulin Glargine 20 units/ 0.2 mls @ 0 mls/hr 01/20/19 21:00 01/20/19 22:27 Miscellaneous Medication SC 0.2 mls HS MEGAN Administration Insulin Human Lispro 0 units 01/14/19 21:25 01/20/19 21:33 Humalog SC 3 unit .BEDTIME SLIDING SC PRN Administration Bedtime Correctional Scale Insulin Human Lispro 0 units 01/17/19 15:00 01/21/19 08:28 Humalog SC 9 unit .AGGRESSIVE SLIDING PRN Administration Aggressive Correctional Scale Pantoprazole Sodium 40 mg 01/16/19 09:00 01/21/19 08:27 Protonix PO 40 mg DAILY MEGAN Administration Sertraline HCl 100 mg 01/16/19 09:00 01/21/19 08:27 Zoloft PO 100 mg DAILY MEGAN Administration Sodium Chloride 10 ml 01/14/19 18:52 01/19/19 09:25 Flush - Normal Saline IVF 10 ml PRN PRN Administration Saline Flush - Exam General Appearance: NAD Eye: PERRL, anicteric sclera ENT: normocephalic atraumatic, no oropharyngeal lesions, moist mucosa Neck: supple, symmetric, no JVD, no thyromegaly, no lymphadenopathy, no carotid bruit Heart: RRR, no murmur, no gallops, no rubs, normal peripheral pulses Respiratory: CTAB, no wheezes, no rales, no ronchi, normal chest expansion, no tachypnea, normal percussion Gastrointestinal: soft, non-tender, non-distended, normal bowel sounds, no palpable masses, no hepatomegaly, no splenomegaly, no bruit Extremities: no cyanosis, no clubbing, no edema Neurological: CN's grossly intact, normal sensation to touch, no weakness, no focal deficits, no new deficit Hosp A/P (1) NSVT (nonsustained ventricular tachycardia) Code(s): I47.2 - VENTRICULAR TACHYCARDIA Status: Acute (2) DM2 (diabetes mellitus, type 2) Status: Chronic Qualifiers: Diabetes mellitus intermediate insulin use: with intermediate teacher use (3) Acute worsening of stage 3 chronic kidney disease Code(s): N18.3 - CHRONIC KIDNEY DISEASE, STAGE 3 (MODERATE) Status: Acute (4) UTI (urinary tract infection) Status: Resolved - Plan Renal --- creatinine improving, will continue hydration for now. UTI---off ATB, symptoms seems to have resolved. Cardio---seen by Cardio today, Isordil will be added to hydralazine for added benefit proven in the case of CHF. DM---on insulin, will djust diet and see if it helps, on wednesday I will possibly call highway painter helper to coordinate wether we need to stop Metformin.
[2019-01-21] MEDS: Isosorbide Dinitrate 5 MG TAB PO SCH ×3 (09:56→20:39)
[2019-01-21] MEDS: Insulin Glargine 20 UNITS in Pre-Filled Syringe 1 EACH SC SCH (20:40)
[2019-01-22] MEDS: Sodium Chloride 0.9% 1,000 ML IV SCH (03:34)
[2019-01-22 06:17] LABS: Anion Gap 13 mmol/L (10-20); BUN (Urea Nitrogen) 26 mg/dL (8.4-25.7); Calc. Creatinine Clearance 62 mL/min (70-130); Calcium 8.9 mg/dL (7.8-10.44); Carbon Dioxide 25 mmol/L (23-31); Chloride 102 mmol/L (98-107); Estimated GFR-MDRD 42; Glucose 205 mg/dL (80-115); Magnesium 1.8 mg/dL (1.6-2.6); Sodium 136 mmol/L (136-145)
[2019-01-22] MEDS: Isosorbide Dinitrate 5 MG TAB PO SCH ×3 (09:25→20:02)
[2019-01-22] MEDS: Aspirin 81 mg Enteric Coated Tablet PO SCH (09:25)
[2019-01-22] MEDS: Carvedilol 6.25 MG TAB PO SCH ×2 (09:25→20:00)
[2019-01-22] MEDS: hydrALAZINE 25 MG TAB PO SCH ×3 (09:26→20:01)
[2019-01-22] MEDS: Atorvastatin Calcium 40 MG TAB PO SCH (09:26)
[2019-01-22] MEDS: Ezetimibe 10 MG TAB PO SCH (09:26)
[2019-01-22] MEDS: Apixaban 5 MG TAB PO SCH ×2 (09:26→20:00)
[2019-01-22] MEDS: HumaLOG 300 UNITS/3 ML VIAL SC PRN ×2 (12:36→18:10)
--- NOTE | 2019-01-22 14:04 | PDOC.HOSPP ---
- Subjective Encounter Date: 01/22/19 Subjective: Feels very good has no specific complaints - Objective Vital Signs & Weight: Vital Signs (12 hours) Temp Pulse Resp BP BP Pulse Ox 01/22/19 12:38 97.9 F 72 18 155/80 H 99 01/22/19 09:26 68 01/22/19 08:45 98.7 F 78 16 132/82 95 01/22/19 04:15 99.0 F 68 18 107/60 99 Weight Weight 222 lb 9.6 oz I&O: 01/21/19 01/22/19 01/23/19 06:59 06:59 06:59 Intake Total 2160 2040 Output Total 1010 1460 Balance 1150 580 Result Diagrams: 01/20/19 08:48 01/22/19 05:28 Additional Labs: Accuchecks 01/22/19 01/22/19 01/21/19 11:22 05:11 20:24 POC Glucose 235 H 208 H 306 H 01/21/19 17:03 POC Glucose 187 H Hospitalist ROS - Medication Medications: Active Medications Generic Name Dose Route Start Last Admin Trade Name Kaylie PRN Reason Stop Dose Admin Apixaban 5 mg 01/18/19 21:00 01/22/19 09:26 Eliquis PO 5 mg BID MEGAN Administration Aspirin 81 mg 01/16/19 09:00 01/22/19 09:25 Ecotrin PO 81 mg DAILY MEGAN Administration Atorvastatin Calcium 80 mg 01/16/19 09:00 01/22/19 09:26 Lipitor PO 80 mg DAILY MEGAN Administration Carvedilol 6.25 mg 01/15/19 21:00 01/22/19 09:25 Coreg PO 6.25 mg BID MEGAN Administration Ezetimibe 10 mg 01/20/19 09:00 01/22/19 09:26 Zetia PO 10 mg DAILY MEGAN Administration Glipizide 10 mg 01/16/19 08:00 01/22/19 09:25 Glucotrol Xl PO 10 mg QAM-WM MEGAN Administration Hydralazine HCl 37.5 mg 01/21/19 21:00 01/22/19 09:26 Apresoline PO 37.5 mg TID MEGAN Administration Insulin Glargine 20 units/ 0.2 mls @ 0 mls/hr 01/20/19 21:00 01/21/19 20:40 Miscellaneous Medication SC 0.2 mls HS MEGAN Administration Insulin Human Lispro 0 units 01/14/19 21:25 01/22/19 12:36 Humalog SC 2 unit .BEDTIME SLIDING SC PRN Administration Bedtime Correctional Scale Insulin Human Lispro 0 units 01/17/19 15:00 01/21/19 13:53 Humalog SC 6 unit .AGGRESSIVE SLIDING PRN Administration Aggressive Correctional Scale Isosorbide Dinitrate 10 mg 01/21/19 09:00 01/22/19 09:25 Isordil PO 10 mg TID MEGAN Administration Pantoprazole Sodium 40 mg 01/16/19 09:00 01/22/19 09:25 Protonix PO 40 mg DAILY MEGAN Administration Sertraline HCl 100 mg 01/16/19 09:00 01/22/19 09:26 Zoloft PO 100 mg DAILY MEGAN Administration Sodium Chloride 10 ml 01/14/19 18:52 01/19/19 09:25 Flush - Normal Saline IVF 10 ml PRN PRN Administration Saline Flush - Exam General Appearance: NAD, awake alert Eye: PERRL, anicteric sclera ENT: normocephalic atraumatic, no oropharyngeal lesions, moist mucosa Neck: supple, symmetric, no JVD, no thyromegaly, no lymphadenopathy, no carotid bruit Heart: RRR, no murmur, no gallops, no rubs, normal peripheral pulses Respiratory: CTAB, no wheezes, no rales, no ronchi, normal chest expansion, no tachypnea, normal percussion Gastrointestinal: soft Extremities: no cyanosis, no clubbing, no edema Hosp A/P (1) NSVT (nonsustained ventricular tachycardia) Code(s): I47.2 - VENTRICULAR TACHYCARDIA Status: Acute (2) DM2 (diabetes mellitus, type 2) Status: Chronic Qualifiers: Diabetes 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 magnesium is low, will correct with one gram and recheck in am. UTI---off ATB, symptoms seems to have resolved. Cardio---seen by Cardio today, Isordil added to hydralazine for added benefit proven in the case of CHF. DM---on insulin, will djust diet and see if it helps, will add low dose Januvia , will most likely need to be discharged on lantus.
[2019-01-22] MEDS: Alogliptin 6.25 MG TAB PO SCH (15:03)
[2019-01-22] MEDS: Insulin Glargine 20 UNITS in Pre-Filled Syringe 1 EACH SC SCH (22:06)
[2019-01-23 05:29] LABS: Anion Gap 13 mmol/L (10-20); BUN (Urea Nitrogen) 21 mg/dL (8.4-25.7); Calc. Creatinine Clearance 67 mL/min (70-130); Calcium 8.7 mg/dL (7.8-10.44); Carbon Dioxide 24 mmol/L (23-31); Chloride 102 mmol/L (98-107); Estimated GFR-MDRD 46; Glucose 198 mg/dL (80-115); Magnesium 1.9 mg/dL (1.6-2.6); Potassium 3.5 mmol/L (3.5-5.1); Sodium 135 mmol/L (136-145)
[2019-01-23] MEDS: hydrALAZINE 25 MG TAB PO SCH ×2 (08:36→14:49)
[2019-01-23] MEDS: Aspirin 81 mg Enteric Coated Tablet PO SCH (08:37)
[2019-01-23] MEDS: Apixaban 5 MG TAB PO SCH (08:37)
[2019-01-23] MEDS: Atorvastatin Calcium 40 MG TAB PO SCH (08:39)
[2019-01-23] MEDS: Ezetimibe 10 MG TAB PO SCH (08:40)
[2019-01-23] MEDS: Carvedilol 6.25 MG TAB PO SCH (08:40)
[2019-01-23] MEDS: Isosorbide Dinitrate 5 MG TAB PO SCH ×2 (08:46→14:49)
[2019-01-23] MEDS ORDERED: Alogliptin 6.25 MG TAB PO SCH (09:00)
[2019-01-23] MEDS ORDERED: Potassium Chloride 20 MEQ TAB PO SCH (10:20)
[2019-01-23] MEDS: HumaLOG 300 UNITS/3 ML VIAL SC PRN (12:33)
[2019-01-23 15:44] VITALS: BP 118/61; TEMP 99.2
[2019-01-23] MEDS: Alogliptin 6.25 MG TAB PO SCH (16:09)
--- NOTE | 2019-01-24 04:07 | DIS ---
DATE OF ADMISSION: 01/14/2019 DATE OF DISCHARGE: 01/23/2019 HOSPITAL COURSE: This is a 68-year-old male patient who was admitted on 01/14/2019 and was diagnosed with urinary tract infection. He was started on Levaquin adjusted per his kidney function. Also his diabetes has been uncontrolled. It was noted that his primary care physician has been trying to adjust his medication since he does have worsening of kidney function. Some medications were stopped, my understanding that metformin was stopped. Also on admission, his creatinine was 2.33. During his stay, his kidney function was monitored, he was given IV fluids and his creatinine did improve today, it is 1.5. During his stay, physical therapy and he did well. Yesterday he walked quite a bit and was very stable on his feet. During his stay, he did have an echocardiogram that shows an EF of 30% to 35%. He was seen by Cardiology. Isordil was added to hydralazine for documented and it benefit in the case of congestive heart failure. The patient has been off his diuretics due to his worsening kidney function since the goal was to keep him hydrated. In regard to his diabetes, low dose Januvia was added and he was on Lantus for the past 24 to 48 hours, his glycemia has been much improved around 200s. More adjustment of his medication needs to be done as an outpatient, I did ask the patient whether he is familiar with the use of insulin, and he said that he was, but he did not have any insulin at home, for that reason we will provide him with new prescriptions for insulin and Januvia. Regarding his UTI, he did not finish course of antibiotics and did not have any further dysuria. He did have an episode of nonsustained VTach, but was no recurrent, his magnesium was on the low side, it was corrected. As mentioned above, Cardiology did see him and his blood pressure medications were adjusted, so spironolactone and bumetanide were stopped as well as Lasix, but I will resume his Lasix as an outpatient. The others will continue to be stopped to prevent further worsening of his kidney function. We will also continue on holding metformin since we did start him on Januvia and Lantus. We will continue on holding his CRISTEL inhibitor. PHYSICAL EXAMINATION: GENERAL: Today, the patient feels fairly well, in no acute distress. He is awake, alert, oriented, does not appear in distress. LUNGS: Clear. ABDOMEN: Soft. EXTREMITIES: No lower extremity edema. No cyanosis. He is eager to go home. DISCHARGE MEDICATIONS: 1. Januvia 6.25 mg p.o. once a day. This is a new medication. 2. Eliquis 5 mg p.o. twice a day. This is an increase from the previous dose. This dose was increased by Cardiology. 3. Zetia 10 mg p.o. once a day. 4. Hydralazine 37.5 mg p.o. 3 times a day, new medication. 5. Lantus 20 units subcutaneously at bedtime, new medication. 6. Isosorbide dinitrate 5 mg 2 tablets 3 times a day, new medication. 7. Aspirin 81 mg once a day. 8. Atorvastatin 80 mg once a day. 9. Baclofen 10 mg 3 times a day as needed. 10. Bumetanide 2 mg p.o. once a day. 11. Coreg 6.25 mg twice a day. 12. Lasix 20 mg once a day. 13. Glipizide XL 10 mg once a day. 14. Protonix 40 mg once a day. 15. Sertraline 100 mg once a day. Medications that were discontinued were; 1. Lisinopril. 2. Zaroxolyn. 3. Nifedipine. 4. Spironolactone. More than half an hour was spent to discharge the patient. Job ID: [id number]
== END 2019-01-23 16:36 | disposition home or self-care (01) | DRG 683 ==
LOC: ERS 14:45 → T4-B 18:38 → OBSVTOIN 18:38 → INTOOBSV 18:38 → 2NO 01-16 13:00
PROVIDERS: ADMIT Family Medicine; ATTEND Hospitalist
DX: N17.9 Acute kidney failure, unspecified (principal); N39.0 Urinary tract infection, site not specified; I47.2 Ventricular tachycardia; E87.1 Hypo-osmolality and hyponatremia; I13.0 Hypertensive heart and chronic kidney disease with heart failure and stage 1 through stage 4 chronic kidney disease, or unspecified chronic kidney disease; I42.9 Cardiomyopathy, unspecified; E11.65 Type 2 diabetes mellitus with hyperglycemia; E78.5 Hyperlipidemia, unspecified; D63.1 Anemia in chronic kidney disease; E11.22 Type 2 diabetes mellitus with diabetic chronic kidney disease; N40.1 Benign prostatic hyperplasia with lower urinary tract symptoms; R35.0 Frequency of micturition; F32.9 Major depressive disorder, single episode, unspecified; R29.6 Repeated falls; N18.3 Chronic kidney disease, stage 3 (moderate); I25.10 Atherosclerotic heart disease of native coronary artery without angina pectoris; I48.2 Chronic atrial fibrillation; Z60.2 Problems related to living alone; I08.3 Combined rheumatic disorders of mitral, aortic and tricuspid valves; I50.9 Heart failure, unspecified; I69.920 Aphasia following unspecified cerebrovascular disease; I69.990 Apraxia following unspecified cerebrovascular disease; Z87.891 Personal history of nicotine dependence; Z95.810 Presence of automatic (implantable) cardiac defibrillator; Z79.01 Long term (current) use of anticoagulants; Z79.899 Other long term (current) drug therapy; Z88.0 Allergy status to penicillin; Z79.84 Long term (current) use of oral hypoglycemic drugs
CPT/HCPCS: 36415; 36416; 70450; 71045; 74176; 80048; 80053; 80061; 81003; 81015; 82010; 82330; 82803; 83690; 83735; 84484; 85025; 85610; 85730; 93005; 93306; 96361; 96365; 96375; J1815; J1956; J2270; J2405; J3475; J3490